=== PATIENT | male | born 1950 | race Caucasian/White ===

== ENCOUNTER 2017-10-28 14:46 | Emergency (ER) | payer OTHER, SELFPAY ==
[2017-10-28 14:47] VITALS: BP 131/108; PULSE 170; RESP 18; TEMP 36.6; O2SAT 99; BMI 30.2
[2017-10-28] MEDS: Adenosine 6 MG/2 ML Syringe IV (15:05)
--- NOTE | 2017-10-28 15:11 | EKG12_ITS ---
Test Reason : PALP Blood Pressure : / mmHG Vent. Rate : 161 BPM Atrial Rate : 163 BPM P-R Int : 000 ms QRS Dur : 106 ms QT Int : 296 ms P-R-T Axes : 000 -49 054 degrees QTc Int : 484 ms Supraventricular tachycardia Left axis deviation Abnormal ECG Confirmed by TAHIRA LOVETT, NONA ([id number]), state editor JOSHUA MARRUFO ([id number]) on 11/01/2017 8:28:24 AM Referred By: Damaso Carl Confirmed By:NONA HOFFMANN MD
--- NOTE | 2017-10-28 15:11 | RAD_ITS ---
STUDY: X-RAY CHEST REASON FOR EXAM: Male, 67 years old. Chest pain. TECHNIQUE: Single AP portable view of the chest. COMPARISON: None. FINDINGS: EKG left ribs are seen. The lungs are clear and expanded. There is no demonstrated pleural abnormality. Normal size heart. Normal mediastinum and caitlin. Normal visualized pulmonary arteries. There is atherosclerotic tortuosity of the aortic arch and descending thoracic aorta. There are diffuse degenerative changes of the visualized thoracic spine. Normal visualized ribs, clavicles, and shoulders. There is no demonstrated abnormality of the visualized soft tissue structures of the upper abdomen. RAD/Chest 1 View (Portable) IMPRESSION: No acute abnormality is seen. Electronically Signed: Irvin Solis MD at 15:39 EDT Tel [phone], Service support ,
[2017-10-28] MEDS: Metoprolol Tartrate 5 MG/5 ML Vial IV (15:17)
[2017-10-28] MEDS: 0.9% Normal Saline 1,000 ML 150 ML IV (15:17)
[2017-10-28 15:18] VITALS: BP 166/124; PULSE 103; RESP 19; O2SAT 97
--- NOTE | 2017-10-28 15:19 | EKG12_ITS ---
Test Reason : PALP Blood Pressure : / mmHG Vent. Rate : 109 BPM Atrial Rate : 326 BPM P-R Int : 000 ms QRS Dur : 092 ms QT Int : 296 ms P-R-T Axes : -61 003 079 degrees QTc Int : 398 ms Atrial flutter with variable A-V block with premature ventricular or aberrantly conducted complexes Abnormal ECG Confirmed by TAHIRA LOVETT, NONA ([id number]), staff editor JOSHUA MARRUFO ([id number]) on 11/01/2017 8:29:09 AM Referred By: Damaso Carl Confirmed By:NONA HOFFMANN MD
--- NOTE | 2017-10-28 15:27 | ED.DCSUM_ITS ---
- ER Visit Summary Date of Service: 10/28/17 Chief Complaint: Heart racing History of Present Illness: The patient is a 67 M who is scheduled for prostate surgery on November 04. Patient came in today for preadmission testing and EKG noted the patient to be in SVT. Patient states that now that someone is pointed out his fast heart rate, he does have the sensation that his heart is racing. He states this occurs periodically. He does not know how long this episode may have lasted. Patient does not have chest pain, shortness of breath , lightheadedness, or near syncope. Patient previously been on aspirin and multivitamins that he stopped on October 13 due to his upcoming surgery. Physical Examination: Vital signs include a blood pressure 131/108, temperature 97.8, heart rate 170, respiratory rate 18, pulse ox 99% on room air. Patient sitting upright in bed no acute distress. He is alert and conversant. Head neck examination is unremarkable. Heart is tachycardic. Lung sounds are clear. Abdomen is soft nontender. Test Results: Portable chest x-ray reveals no acute abnormality. EKG appeared to show SVT with a rate of 171. No acute ischemia. CBC was a white count of 14.3. Chemistry studies reveal BUN 23 and creatinine 1.82. Coags are normal. Troponin is less than 0.02. TSH is unremarkable. Emergency Department Course and Treatment: IV line was established. Patient was given 6 mg of IV adenosine. Patient's heart rate waxed and waned between atrial fibrillation and SVT. 5 mg of IV metoprolol were given and patient converted to an atrial flutter rhythm at approximately 110. Patient maintained in this rhythm for approximately 45 minutes and then kicked back into what appeared to be SVT versus a flutter with a 2-1 block at 161. Before he was given any medications he spontaneously converted to normal sinus rhythm. Patient has maintained in sinus rhythm for over an hour. I spoke with Dr. Hernandez. Patient be started on metoprolol 50 mg twice daily. His creatinine clearance is 41 and he will be started on Xarelto at 15 mg a day. Prescriptions for the patient will be given and he will follow-up with Dr. Hernandez. Treatment Plan: [] Disposition: Discharge Impression: 1. SVT, chemical cardioversion 2. New onset atrial flutter with spontaneous conversion to sinus rhythm. This note was generated with Dragon dictation software. It may contain incorrect words, spelling, and punctuation that were not noted in review of the chart prior to signing ED Disposition - Plan for ED Patient: Chief Complaint: Palpitations Referrals: Jey Adams [Primary Care Provider] -
[2017-10-28 15:28] LABS: Absolute Neutrophil Count 10.2 X10^3/uL (2.0-7.7); Basophil# 0.03 X10^3/uL; Basophil% 0.2 % (0-1); Eosinophil# 0.22 X10^3/uL; Eosinophils% 1.5 % (0-5); Hemoglobin 16.2 g/dl (13.0-16.5); Lymphocyte % 17.5 % (19-41); Mean Corp Hgb Conc 34.5 g/gl (32-36); Mean Corpuscular Hgb 30.1 pg (27.0-32.0); Mean Corpuscular Volume 87.4 fL (80-94); Mean Platelet Vol. 11.2 fl (6.2-12.0); Monocyte# 1.35 X10^3/uL; Monocyte% 9.4 % (0-10); Neutrophil # 10.18 X10^3/uL (2.7-7.7); Neutrophil % 71.2 % (47-70); Platelet Count 319 K/mm3 (150-450); RBC Distribution Width CV 13.6 % (11.6-14.6); RBC Distribution Width SD 43.5 fl (35.1-43.9); Red Blood Count 5.38 M/mm3 (4.6-6.2); White Blood Count 14.3 K/mm3 (4.4-11.0)
[2017-10-28 15:39] LABS: International Normalized Ratio 1.1; Partial Thromboplast Time 27.4 Seconds (24.1-36.2); Prothrombin Time (Protime)PT. 13.8 SECONDS (11.7-14.9)
[2017-10-28 15:50] LABS: POSITIVE COUNT NO; POSITIVE DIFFERENTIAL NO; POSITIVE MORPHOLOGY NO
--- NOTE | 2017-10-28 15:59 | EKG12_ITS ---
Test Reason : TACHY Blood Pressure : / mmHG Vent. Rate : 171 BPM Atrial Rate : 170 BPM P-R Int : 000 ms QRS Dur : 104 ms QT Int : 284 ms P-R-T Axes : 000 -67 080 degrees QTc Int : 479 ms Supraventricular tachycardia Left anterior fascicular block ST & T wave abnormality, consider inferior ischemia Abnormal ECG Confirmed by TAHIRA LOVETT, NONA ([id number]), supervising editor news reel JOSHUA MARRUFO ([id number]) on 11/01/2017 8:29:39 AM Referred By: Damaso Carl Confirmed By:NONA HOFFMANN MD
[2017-10-28 16:06] VITALS: BP 118/93; PULSE 162; RESP 16; O2SAT 97
[2017-10-28] MEDS: Enoxaparin 100 MG/ML Syringe SC (16:10)
--- NOTE | 2017-10-28 16:14 | HP.PCM_ITS ---
Addendum entered and electronically signed by Joyce Ross MD 10/28/17 19:38 : Code Visit Office Visits / Consults: [id number] OP Consult L1 Original Note: Problem List (1) Atrial flutter Status: Acute (2) Paroxysmal atrial flutter Status: Acute History of Present Illness Date of Admission: 10/28/17 Chief Complaint: cleared for discharge from ED The patient is a 67 year old M seen and examined in ED for atrial flutter [] Past Medical History Allergies No Known Allergies Allergy (Verified 10/28/17 14:47) Home Medications: Ambulatory Orders Medication Instructions Recorded Aspirin E.C. [Ecotrin] 81 mg PO DAILY@0800 10/28/17 Metoprolol Tartrate [Lopressor 50 mg PO BID #60 tablet 10/28/17 (Beta Codey)] Rivaroxaban [Xarelto] 15 mg PO DAILY #30 tablet 10/28/17 Tamsulosin HCl [Flomax] 0.4 mg PO DAILY 10/28/17 Smoking Status: Never smoker VTE Information - Inpt Only VTE Present on Admission: No VTE Mechan Device Prophylaxis: None VTE Pharm Prophylaxis ordered?: No Reason prophylaxis not ordered:: Treatment Not Indicated - Xarelto at discharge - Physical Exam General: Alert, Oriented x3, Cooperative Neck: No JVD, Negative Carotid Bruits, Thyroid Normal Size and Texture Lungs: Clear to auscultation Cardiovascular: Regular rate, Regular Rhythm - sinus predominant with PACs Abdomen: - - Pierre leg bag Vital Signs Temp Pulse Resp BP Pulse Ox 97.8 F 162 H 16 118/93 H 97 10/28/17 14:47 10/28/17 16:06 10/28/17 16:06 10/28/17 16:06 10/28/17 16:06 Oxygen Flow Rate (L/min) 2 Oxygen Delivery Method Room Air Weight: 210 lb 15.718 oz Body Mass Index (BMI) 30.2 Laboratory Tests Past 24 Hrs 10/28/17 10/28/17 10/28/17 14:55 14:55 14:55 WBC 14.3 H RBC 5.38 Hgb 16.2 Hct 47.0 MCV 87.4 MCH 30.1 MCHC 34.5 RDW 13.6 RDW Differential 43.5 Plt Count 319 MPV 11.2 Immature Gran % (Auto) 0.200 Neut % (Auto) 71.2 H Lymph % (Auto) 17.5 L Moffat % (Auto) 9.4 Eos % (Auto) 1.5 Baso % (Auto) 0.2 Absolute Neuts (auto) 10.2 H Absolute Lymphs (auto) 2.50 Total Counted Not Reportable PT 13.8 INR 1.1 APTT 27.4 Sodium Pending Potassium Pending Chloride Pending Carbon Dioxide Pending Anion Gap Pending BUN Pending Creatinine Pending Est GFR (MDRD) Af Amer Pending Est GFR (MDRD) Non-Af Pending BUN/Creatinine Ratio Pending Glucose Pending Calcium Pending Troponin I Pending TSH Pending Assessment/Plan Patient was seen and examined in the emergency department. 67-year-old gentleman who was referred from the urology office/PAT for SVT. The patient was asymptomatic. He reported occasionally feeling fluttering in his chest over the past few years, asymptomatic. Usually occurred after eating large meals. He denied any anginal symptoms. EKGs were reviewed. Initial EKG SVT at 170. He received adenosine 6 mg, and reverted to an atrial flutter, 2-1 at approximately 150s. He then received 5 mg Lopressor IV, and eventually settled into a sinus rhythm. Upon seeing the patient, he remains in sinus rhythm with occasional PACs. Physical exam was unrevealing, volume status euvolemic. He has Pierre with leg bag for urinary retention. He remained in sinus rhythm whilst observed in ED for over an hour, and was cleared for discharge by cardiology, Dr. Hernandez. Prescriptions for NOAC and betablocker were provided by ED in consultation with Dr. Hernandez. Follow up was arranged.
--- NOTE | 2017-10-28 16:19 | EKG12_ITS ---
Test Reason : PALP Blood Pressure : / mmHG Vent. Rate : 071 BPM Atrial Rate : 071 BPM P-R Int : 146 ms QRS Dur : 100 ms QT Int : 366 ms P-R-T Axes : 027 -29 039 degrees QTc Int : 397 ms Sinus rhythm with marked sinus arrhythmia Otherwise normal ECG Confirmed by TAHIRA LOVETT, NONA ([id number]), makeup editor JOSHUA MARRUFO ([id number]) on 11/01/2017 8:51:25 AM Referred By: Damaso Carl Confirmed By:NONA HOFFMANN MD
[2017-10-28 16:32] VITALS: BMI 30.3
[2017-10-28 17:17] LABS: Anion Gap 10 (5-15); BUN 23 mg/dL (7-18); BUN/Creat Ratio 12.6 RATIO (10-20); Chloride 108 mmol/L (98-107); Creatinine, Serum 1.82 mg/dL (0.70-1.30); EST Glomerular Filtration Rate 40 mL/min (>60); Est Glom Filt Rate - Afr Amer 48 mL/min (>60); Estimated Creatinine Clearance 41.22 ml/min; Glucose 101 mg/dL (74-106); Potassium 4.2 mmol/L (3.5-5.1); Sodium Level 142 mmol/L (136-145); Thyroid Stim Hormone (TSH) 2.18 uIU/mL (0.358-3.74)
[2017-10-28] MEDS: Metoprolol Tartrate 25 MG Tablet 50 MG PO (17:22)
[2017-10-28 17:23] VITALS: BP 110/67; PULSE 67; RESP 16; O2SAT 94
--- NOTE | 2017-10-28 17:31 | ED.DEP ---
ED Disposition - Plan for ED Patient: Disposition: Home or Assisted Living Chief Complaint: Palpitations Instructions: ED Paroxysmal Atrial Flutter Prescriptions: Rivaroxaban [Xarelto] 15 mg PO DAILY #30 tablet Metoprolol Tartrate [Lopressor (Beta Codey)] 50 mg PO BID #60 tablet Referrals: Jey Adams [Primary Care Provider] - Ez Hernandez MD [STAFF PHYSICIAN] - Additional Instructions: Follow-up with Dr Hernandez as discussed.
[2017-10-28 17:45] VITALS: BP 121/74; PULSE 64; RESP 16; O2SAT 95
[2017-10-28] MEDS: Rivaroxaban 15 MG Tablet PO (17:55)
== END 2017-10-28 17:55 | disposition home or self-care (01) ==
PROVIDERS: Emergency Provider Emergency Medicine; Family Provider Family Medicine; PCP Family Medicine
DX: I47.1 Supraventricular tachycardia (principal); I48.92 Unspecified atrial flutter; N40.0 Benign prostatic hyperplasia without lower urinary tract symptoms; Z79.82 Long term (current) use of aspirin; Z79.899 Other long term (current) drug therapy
CPT/HCPCS: 71045; 80048; 84443; 84484; 85025; 85610; 85730; 93005; 96360; 96361; 96372; 96374; 96375; 99285; J7030; A4216; J0153

== ENCOUNTER → 2017-11-14 12:34 | Outpatient (CLI) | payer OTHER, SELFPAY ==
--- NOTE | 2017-11-14 12:34 | ECHOD_ITS ---
Reason For Study: afib Procedure This was a 2D Doppler, Color Flow transthoracic echocardiogram. Exam performed in department. Left Ventricle Normal LV size. Left ventricular systolic function is normal. The estimated ejection fraction is 60 %. No evidence for diastolic dysfunction. No regional wall motion abnormalities noted. Right Ventricle Normal RV size. Normal systolic function. Atria The left atrium is mildly enlarged. Normal right atrium. Mitral Valve Normal mitral valve. Tricuspid Valve Normal tricuspid valve. Aortic Valve Trisinus/trileaflet aortic valve. Pulmonic Valve Normal pulmonic valve. Great Vessels Normal aortic root. The pulmonary artery is normal size. Normal inferior vena cava. Pericardium/Pleural No pericardial effusion. MMode/2D Measurements & Calculations LVIDd: 4.6 cm IVSd: 1.1 cm Ao root diam: 4.6 cm LVIDs: 3.1 cm LVPWd: 1.2 cm RVDd: 4.4 cm FS: 32.4 % LAV(MOD-bp): 76.0 ml EDV(MOD-sp4): 149.8 ml EDV(MOD-sp2): 113.0 ml LAV(MOD-bp) Indexed: 35.6 ml/m2 ESV(MOD-sp4): 52.6 ml EF(MOD-sp2): 74.4 % LAV(MOD-sp2): 70.4 ml EF(MOD-sp4): 64.9 % LAV(MOD-sp4): 74.1 ml SV(MOD-sp4): 97.2 ml SV(MOD-sp2): 84.1 ml LA A4 area: 23.0 cm2 RA A4 area: 13.2 cm2 Doppler Measurements & Calculations MV E max aaron: 92.9 cm/sec Lat Peak E' Aaron: 11.7 cm/sec Med Peak E' Aaron: 8.8 cm/sec MV A max aaron: 50.7 cm/sec E/E' lat: 7.9 E/E' med: 10.5 MV E/A: 1.8 Ao V2 max: 122.4 cm/sec LV V1 max: 101.0 cm/sec Ao max P.0 mmHg LV V1 max P.1 mmHg Interpretation Summary Normal LV size. Left ventricular systolic function is normal. The estimated ejection fraction is 60 %. No evidence for diastolic dysfunction. Structurally normal valves. Ordering Physician: Ez Hernandez Referring Physician: Damaso Carl Performed By: Tianna Benson, MARION, RVT
== END ==
PROVIDERS: Family Provider Family Medicine; PCP Family Medicine; Visit Provider Internal Medicine Cardiovascular Disease
DX: Z01.810 Encounter for preprocedural cardiovascular examination (principal)
CPT/HCPCS: 93306

== ENCOUNTER 2017-11-16 12:19 | Day surgery (SDC) | payer OTHER, SELFPAY ==
[2017-10-28 13:54] VITALS: BP 136/88; PULSE 86; RESP 16; TEMP 37.1; O2SAT 96; BMI 30.2
--- NOTE | 2017-10-28 14:18 | SDCEKG_ITS ---
Test Reason : Blood Pressure : / mmHG Vent. Rate : 092 BPM Atrial Rate : 330 BPM P-R Int : 000 ms QRS Dur : 090 ms QT Int : 312 ms P-R-T Axes : 000 -17 058 degrees QTc Int : 385 ms Atrial flutter with variable A-V block Abnormal ECG Confirmed by TAHIRA LOVETT, NONA ([id number]), production editor JOSHUA MARRUFO ([id number]) on 10/31/2017 2:26:18 PM Referred By: Damaso Carl Confirmed By:NONA HOFFMANN MD
[2017-11-16] VITALS (16 sets, daily range): BP systolic 123–162; BP diastolic 60–85; PULSE 47–69; RESP 16–18; TEMP 36.2–36.7; O2SAT 98–100; BMI 30.2; BMI 30.3
--- NOTE | 2017-11-16 | IMM_PTH ---
PATIENT: GRISELDA HANSEN LOC: [facility] [place][id number] AGE/SX: 67/M ROOM: RE11/16/[address]: Dr. Damaso Carl MD : 1950 BED: DIS: 11/17/2017 SPEC #: [id number] RECD: 11/18/17 12:38 STATUS: CARLIE RETana #: [id number] YARITZA: 11/16/17 00:[address]: Damaso Carl DEPT: IMMUNOHISTOCHEMISTRY RECD BY: Cheryle Jaramillo ENTERED: 11/18/17 12:39 SP TYPE: IMMUNO OTHR DR: Dr. Jey Adams MD Tissues: Prostate, NOS Procedures: PSA (add) 34BE12 (add) P40 (add) PSA (initial) PHYSICIAN & INSTITUTION [place] [id number] SPECIMEN INFORMATION: Tissue Source: Prostate tissue Clinical Info: BPH with lower urinary tract symptoms, retention of urine Specimen Number: [id number] #2 CPT code: 66009, 00872 x3 METHODOLOGY: Deparaffinized sections of prefer/formalin-fixed tissue or PAP/DQ stained slides are incubated with monoclonal/polyclonal antibodies/oligonucleotide probes. Localization is made via biotin free immunoperoxidase method. Appropriate controls are performed and reacted as expected. Results on target cell population are indicated in the following table: RESULTS: ANTIBODY / CLONE RESULT PSA (ER-PR8) positive PSAP (PASE/4LJ) positive 34BE12 (34BE12) negative P40 (BC28) negative These tests were developed and their performance characteristics determined by [facility]. They may not have been cleared or approved by the U.S. Food and Drug Administration. The FDA has determined that such clearance or approval is not necessary. INTERPRETATION: Prostate tissue, transurethral resection: Focus of prostatic adenocarcinoma, Valatie 6 (3+3). AM:celia 11/22/17
[2017-11-16] MEDS: Cefazolin 2 GM in 0.9% Normal Saline 100 ML IV (13:09)
--- NOTE | 2017-11-16 14:15 | PROS_PTH ---
PATIENT: GRISELDA HANSEN LOC: [facility] – [place] U#:[id number] AGE/SX: 67/M ROOM: RE11/16/[address]: Dr. Damaso Carl MD : 1950 BED: DIS: 11/17/2017 SPEC #: [id number] RECD: 11/16/17 16:17 STATUS: CARLIE EILEEN #: [id number] YARITZA: 11/16/17 14:[address]: Damaso Carl DEPT: SURGICAL PATHOLOGY RECD BY: Jayjay Adams ENTERED: 11/17/17 08:56 SP TYPE: TURP OTHR DR: Dr. Jey Adams MD Tissues: Prostate, NOS Procedures: Surgery Specimen Level IV HEADER OPERATION: Cysto, TUR, prostate, Olympus PRE-OP DIAGNOSIS: Benign prostatic hyperplasia with lower urinary tract symptoms, retention of urine TISSUE SUBMITTED: Prostate tissue MICROSCOPIC DIAGNOSIS Prostate, transurethral resection: Adenocarcinoma: Vilonia grade: 6 (3+3) Less than 1% of tissue submitted. Involves focal area in one fragment. AM:celia 11/22/17 COMMENT Case has been reviewed in consultation with Dr. Rangel who concurs with the above diagnosis. IDC:SJ MICROSCOPIC DESCRIPTION Slides are reviewed. GROSS DESCRIPTION Received is one container labeled with the patient's name and designated prostate tissue. The specimen consists of multiple irregular fragments of pink-goodson, rubbery, soft tissue that in aggregate weigh 15.5 gm and measure in aggregate 5 x 5 x 1.3 cm. The specimen is totally submitted in 16 cassettes. / AM:celia 11/17/17 TC:0 CPT: 53090
--- NOTE | 2017-11-16 14:16 | OP.PCM_ITS ---
Report of Operation Date of Procedure: 11/16/17 Pre-Operative Diagnosis: BPH with obstruction and urinary retention Post-Operative Diagnosis: Same Surgery/Procedure Performed:: Transurethral resection of the prostate Description of Surgical Findings:: 67-year-old male who developed urinary retention is failed voiding trials he has a catheter in place at this point presents to the hospital for TURP to hopefully restore normal voiding. 67-year-old male taken back to the operating room after smooth induction of general anesthesia he was placed supine on the table and then in dorsal lithotomy position penis and testicles were prepped and draped in usual sterile fashion went into the bladder through the urethra with a 26 Icelandic continuous flow resectoscope the entire length of the urethra is normal the pendulous urethra is normal the bulbar urethra normal the sphincter was intact the prostate was normal he did have obstructive prostate very large lateral lobes no median lobe I first resected the right lobe of the prostate I then resected the left lobe the prostate and then resected the apical tissue the prostate on both the right side and the left side and Ellik out all the chips and then cauterized throughout the prostate got a good hemostasis resection took about 45 minutes to resect the entire prostate had a nice wide open channel at the end from the verumontanum to the bladder neck obtained good hemostasis all the chips were removed three-way catheter was put into the bladder continues bladder irrigation which is nice and clear the patient anesthetic is being reversed. Type of Anesthesia:: General Drains: 3 way fernando - Admit VTE Documentation VTE Present on Admission: No VTE Mechan Device Prophylaxis: SCD's VTE Pharm Prophylaxis ordered?: No Reason prophylaxis not ordered:: Treatment Not Indicated
[2017-11-16] MEDS: 0.9% Normal Saline 1,000 ML 75 ML IV (18:37)
[2017-11-16] MEDS: Ciprofloxacin 500 MG Tablet PO (21:23)
[2017-11-16] MEDS: Docusate Sodium 100 MG Capsule PO (21:23)
--- NOTE | 2017-11-16 23:01 | NURSING ---
pt ambulated to door and back to bed without any dizziness. tolerated well.
[2017-11-17 02:50] VITALS: BP 130/57; PULSE 44; RESP 16; TEMP 36.6; O2SAT 98
[2017-11-17] MEDS: 0.9% Normal Saline 1,000 ML 75 ML IV (06:22)
--- NOTE | 2017-11-17 07:37 | PCM.DC.URO ---
Discharge Diet: Light diet - advance as tolerated Discharge Activity: Return to Normal Activity Call your doctor if your incision/area has: Sudden Increased Bleeding Suture Line Care: Avoid Pulling/Pushing, Avoid Pinching/Bending Instructions: Transurethral Resection of the Prostate (TURP): Home Recovery Allergies/Adverse Reactions: Allergies No Known Allergies Allergy (Verified 11/02/17 11:25) Medications to take at Discharge Metoprolol Tartrate [Lopressor (Beta Codey)] 50 mg PO BID #60 tablet 10/28/17 Rivaroxaban [Xarelto] 15 mg PO DAILY #30 tablet 10/28/17 Tamsulosin HCl [Flomax] 0.4 mg PO DAILY 10/28/17 Ciprofloxacin [Cipro] 500 mg PO BID #14 tab 11/17/17 The following prescriptions were given: Ciprofloxacin [Cipro] 500 mg PO BID #14 tab Primary Care Physician: Jey Adams MD [Primary Care Provider] - Please Follow Up With: Damaso Carl MD When: December 01 at 9:00 am
[2017-11-17 08:00] VITALS: BP 132/76; PULSE 62; RESP 16; TEMP 36.8; O2SAT 95
--- NOTE | 2017-11-17 12:50 | CHAPLAIN ---
patient was no longer in room; presumed pt has gone to surgery and will be out patient then
== END 2017-11-17 12:00 | disposition home or self-care (01) ==
LOC: SDC 12:22 → AC 12:22 → MS2 11-17 09:16
PROVIDERS: Family Provider Family Medicine; PCP Family Medicine; Visit Provider Urology
PROC: (CPT 52601; principal; 2017-11-16 14:05)
DX: N40.1 Benign prostatic hyperplasia with lower urinary tract symptoms (principal); N13.8 Other obstructive and reflux uropathy; R33.9 Retention of urine, unspecified; Z79.899 Other long term (current) drug therapy; Z79.82 Long term (current) use of aspirin
CPT/HCPCS: 00914; 52601; 88305; 88341; 88342; J7030; J7120

== ENCOUNTER → 2017-12-01 18:20 | Outpatient (CLI) | payer OTHER, SELFPAY | PROVIDERS: Visit Provider Nurse Practitioner Adult Health | DX: R31.9 Hematuria, unspecified (principal) | CPT/HCPCS: 87086 ==

== ENCOUNTER → 2018-01-06 15:31 | Outpatient (CLI) | payer OTHER, SELFPAY ==
[2018-01-06 16:50] LABS: PSA,Total- Diagnostic 2.07 ng/mL (0.0-4.0)
== END ==
PROVIDERS: Family Provider Family Medicine; PCP Family Medicine; Visit Provider Urology
DX: C61 Malignant neoplasm of prostate (principal)
CPT/HCPCS: 36415; 84153

== ENCOUNTER → 2018-01-16 13:56 | Outpatient (CLI) | payer OTHER, SELFPAY | PROVIDERS: Family Provider Family Medicine; PCP Family Medicine; Visit Provider Internal Medicine Cardiovascular Disease | DX: R55 Syncope and collapse (principal); I48.92 Unspecified atrial flutter; I10 Essential (primary) hypertension | CPT/HCPCS: 93225; 93226 ==

== ENCOUNTER → 2018-06-12 10:55 | Outpatient (CLI) | payer OTHER, SELFPAY | PROVIDERS: Family Provider Family Medicine; PCP Family Medicine; Referring Provider Internal Medicine Cardiovascular Disease; Visit Provider Internal Medicine Cardiovascular Disease | DX: I48.92 Unspecified atrial flutter (principal) | CPT/HCPCS: 93225; 93226 ==

== ENCOUNTER → 2018-06-23 11:17 | Outpatient (CLI) | payer OTHER, SELFPAY ==
[2018-06-23 10:41] VITALS: BMI 29.1
[2018-06-23 13:13] LABS: PSA,Total- Diagnostic 2.65 ng/mL (0.0-4.0)
--- OUTSIDE RECORDS SUMMARY | 2018-08-18 09:37 | XMS RPT_ITS ---
:1950 Author Organization OHIP Support Name Relationship Address Phone MENARDS Unavailable [address] + [place] [address] BREN HANSEN Unavailable [address] + [place] [address] JUNE LO Unavailable [address] + [place] [address] MENARDS Unavailable / + [place] [address] BREN HANSEN Unavailable [address] + [place] [address] JUNE LO Unavailable [address] + [place] [address] MENARDS Unavailable [address] + [place] [address] BREN HANSEN Unavailable [address] + [place] [address] JUNE LO Unavailable [address] + [place] [address] MENARDS Unavailable / + [place] [address] BREN HANSEN Unavailable [address] + [place] [address] JUNE LO Unavailable [address] + [place] [address] R Unavailable Unavailable Unavailable BREN HANSEN Unavailable [address] + [place] [address] JUNE LO Unavailable [address] + [place] [address] R Unavailable Unavailable Unavailable BREN HANSEN Unavailable [address] + [place] [address] ZABRINA LOELLE Unavailable [address] + [place] [address] R Unavailable Unavailable Unavailable BREN HANSEN Unavailable [address] + [place] [address] ZABRINA LOELLE Unavailable [address] + [place] [address] R Unavailable Unavailable Unavailable BREN HANSEN Unavailable [address] + [place] [address] ZABRINA LOELLE Unavailable [address] + [place] [address] R Unavailable Unavailable Unavailable BREN HANSEN Unavailable [address] + [place] [address] ZABRINA LOELLE Unavailable [address] + [place] [address] R Unavailable Unavailable Unavailable BREN HANSEN Unavailable [address] + [place] [address] LOZABRINAJUNE Unavailable [address] + [place] [address] R Unavailable Unavailable Unavailable BREN HANSEN Unavailable [address] + [place] [address] LO JUNE Unavailable [address] + [place] [address] R Unavailable Unavailable Unavailable BREN HANSEN Unavailable [address] + [place] [address] LOZABRINAJUNE Unavailable [address] + [place] [address] R Unavailable Unavailable Unavailable BREN HANSEN Unavailable [address] + [place] [address] TERESITA JUNE Unavailable [address] + [place] [address] R Unavailable Unavailable Unavailable TYRONE BREN Unavailable [address] + [place] [address] JUNE LO Unavailable [address] + [place] [address] R Unavailable Unavailable Unavailable TYRONE BREN Unavailable [address] + [place] [address] LOZABRINA ColeyJUNE Unavailable [address] + [place] [address] BREN MARRUFO Unavailable [address] + [place] [address] R Unavailable Unavailable Unavailable JUNE LO Unavailable [address] + [place] [address] R Unavailable Unavailable Unavailable BREN HANSEN Unavailable [address] + [place] [address] JUNE LO Unavailable [address] + [place] [address] R Unavailable Unavailable Unavailable BREN HANSEN Unavailable [address] + [place] [address] ZABRINA LOELLE Unavailable [address] + [place] [address] Care Team Providers Name Role Phone ARY CORTEZ DO Attending Unavailable JEY JEROME MD Primary Care Unavailable JEY JEROME MD Attending Unavailable JEY JEROME MD Primary Care Unavailable JEY JEROME MD Attending Unavailable JEY JEORME MD Primary Care Unavailable DR. JUAN MIGUEL MCKEON DO Attending Unavailable JEY JEROME MD Primary Care Unavailable Damaso Carl Attending Unavailable JEY JEROME Primary Care Unavailable Damaso Carl Referring Unavailable JEY JEROME Primary Care Unavailable Angie Rivera Attending Unavailable JEY JEROME Primary Care Unavailable Norm Thurman Attending Unavailable Arpita Carias Attending Unavailable Arpita Carias Referring Unavailable David, [place] Attending Unavailable Meseret Pieter Referring Unavailable David, [place] Attending Unavailable David, [place] Attending Unavailable Spencer Lam Attending Unavailable JEY JEROME Referring Unavailable MeseretDamaso vargas Attending Unavailable Meseret, Pieter Referring Unavailable JEY JEROME Primary Care Unavailable David, Ez Attending Unavailable David, [place] Referring Unavailable JEY JEROME Primary Care Unavailable David, [place] Attending Unavailable David, [place] Referring Unavailable Meseret Pieter Attending Unavailable Meseret, Pieter Referring Unavailable JEY JEROME Primary Care Unavailable David, Ez Attending Unavailable JEY JEROME Referring Unavailable JEY JEROME Primary Care Unavailable Mami Combs Attending Unavailable David, [place] Attending Unavailable JEY JEROME Referring Unavailable JEY JEROME Primary Care Unavailable David, [place] Attending Unavailable David, [place] Referring Unavailable JEY JEROME Primary Care Unavailable David, Ez Attending Unavailable JEY JEROME Referring Unavailable David, Ez Attending Unavailable David, Ez Referring Unavailable JEY JEROME Primary Care Unavailable PROBLEMS PROBLEMS DATE TYPE CONDITION / CODE ATTENDING STATUS SOURCE Unknown C61 - Malignant MeseretDamaso Active [place] 8 neoplasm of prostate / [facility] C61(ICD-10) Hospital Repository Admitting Hyperlipidemia, LINDA DO, Active [place] [address] Diagnosis unspecified / [facility] E78.5(ICD-10) Repository Admitting Other fatigue / LINDA DR. KAHLIL Active [facility] 8 Diagnosis R53.83(ICD-10) [facility] Repository Admitting Abnormal level of LINDA DO, Active [facility] 8 Diagnosis blood mineral / [facility] R79.0(ICD-10) Repository Unknown I48.92 - Unspecified David, [place] Active [place] 8 atrial flutter / [facility] I48.92(ICD-10) Hospital Repository Unknown R55 - Syncope and David, [place] Active [place] 8 collapse / R55(ICD-10) [facility] Hospital Repository Unknown N40.1 - Benign David, [place] Active [place] 8 prostatic hyperplasia [facility] with lower urinary Hospital tract symptoms / Repository N40.1(ICD-10) Unknown N13.8 - Other David, Ez Active [place] 8 obstructive and reflux Community uropathy / Hospital N13.8(ICD-10) Repository Unknown I10 - Essential David, Ez Active [place] 8 (primary) hypertension Community / I10(ICD-10) Hospital Repository Unknown Z01.810 - Encounter David, [place] Active [place] 8 for preprocedural Community cardiovascular Hospital examination / Repository Z01.810(ICD-10) Unknown R94.31 - Abnormal DavidEz nieves Active [place] 8 electrocardiogram Community [ECG] [EKG] / Hospital R94.31(ICD-10) Repository Admitting Hyperkalemia / QUEENIE LOVETT, Active [place] [address] Diagnosis E87.5(ICD-10) [facility] Admitting Hyperglycemia, QUEENIE LOVETT, Active [place] [address] Diagnosis unspecified / JEY D. [facility] R73.9(ICD-10) Repository Admitting Family history of QUEENIE LOVETT, Active [place] [address] Diagnosis other endocrine, [facility] nutritional and Repository metabolic diseases / Z83.49(ICD-10) PROCEDURES PROCEDURES No Procedure Records FoundRESULTS RESULTS PSA,TOTAL- DIAGNOSTIC Collected: 06/23/2018 Status: F Source: [place] 11:21 AM [facility] REPOSITORY TYPE CODE TESTS RESULT OUT OF RANGE REFERENCE UNITS LAB L501.9940 0.0-4.0 ng/mL PSA, Normal DIAGNOSTIC 2.65 Result Comment: This test was performed using the TPSA assay method for the [employer] chemistry system. Values obtained with different assay methods cannot be used interchangably. When changing PSA assays in the course of monitoring a patient, additional sequential testing should be carried out to confirm baseline values. Performed By: #### L501.9940 #### [facility] [place], [address] [facility] Collected: 05/10/2018 Status: F Source: [facility] 11:09 AM [facility] REPOSITORY TYPE CODE TESTS RESULT OUT OF REFERENCE UNITS RANGE LAB GLU(LOINC) 80-115 mg/dL Glucose Level 82 LAB NA(LOINC) 136-145 mmol/L Sodium Level 139 LAB K(LOINC) 3.5-5.1 mmol/L Potassium Level 4.9 LAB CL(LOINC) 98-107 mmol/L Chloride 103 LAB CO2(LOINC) 23-31 mmol/L CO2 28 LAB EBAL(LOINC mEq/L ) Electrolyte Balance 8.0 LAB BUN(LOINC) 7-18 mg/dL BUN 16 LAB CRE(LOINC) 0.70-1.30 mg/dL Creatinine Lvl (s) 1.03 LAB BC(LOINC) 7-27 ratio BUN/Creatinine 16 Ratio LAB CA(LOINC) 8.4-10.2 mg/dL Calcium Lvl 9.2 LAB PROT(LOINC 6.4-8.2 G/dL ) Total Protein 6.6 LAB ALB(LOINC) 3.4-4.8 G/dL Albumin Level 3.7 LAB GLB(LOINC) G/dL Globulin 2.9 LAB AG(LOINC) 1.1-2.5 ratio A/G Ratio 1.3 LAB BILT(LOINC 0.2-1.0 mg/dL ) Bili Total 1.0 LAB AP(LOINC) 40-135 U/L Alk Phos 71 LAB AST(LOINC) 10-40 U/L AST/SGOT 19 LAB ALT(LOINC) 10-35 U/L ALT/SGPT 32 Performed By: #### GFR, FERR, LIPID, CMP #### [place] [address] #### HGMP #### [address] [address] LIPID Collected: 05/10/2018 Status: F Source: [facility] 11:09 AM [facility] REPOSITORY TYPE CODE TESTS RESULT OUT OF REFERENCE UNITS RANGE LAB CHOL(LOINC 0-200 mg/dL ) Cholesterol 151 Result Comment: Cholesterol Reference Interval: Less than 200 Desirable 200-239 Borderline high risk 240 and above High risk LAB TRIG(LOINC) 0-150 mg/dL Triglycerides 76 Result Comment: Triglyceride Reference Interval: Less than 150 Normal 150-199 Borderline high risk 200-499 High risk 500 or higher Very high risk LAB HD(LOINC) 40-60 mg/dL HDL Cholesterol 50 LAB LDL(LOINC) 0-130 mg/dL LDL Cholesterol 86 Performed By: #### GFR, FERR, LIPID, CMP #### [place] [address] #### HGMP #### [address] [address] .GFR Collected: 05/10/2018 Status: F Source: [facility] 11:09 AM [facility] REPOSITORY TYPE CODE TESTS RESULT OUT OF REFERENCE UNITS RANGE LAB GFRAA(LOINC ml/min/1.73 ) sqm GFR 88 [place] Result Comment: GFR Population mean for , Non- Americans Ages 20-29 = 116 mL/min/1.73 sq.m. Ages 30-39 = 107 mL/min/1.73 sq.m. Ages 40-49 = 99 mL/min/1.73 sq.m. Ages 50-59 = 93 mL/min/1.73 sq.m. Ages 60-69 = 85 mL/min/1.73 sq.m. Ages 70+ = 75 mL/min/1.73 sq.m. Chronic Kidney Disease: Less than 60 mL/min/1.73 square meters End Stage Renal Disease: Less than 15 mL/min/1.73 square meters LAB GFRNO(LOINC) ml/min/1.73sqm GFR Non- 72 Result Comment: GFR Population mean for , Non- Americans Ages 20-29 = 116 mL/min/1.73 sq.m. Ages 30-39 = 107 mL/min/1.73 sq.m. Ages 40-49 = 99 mL/min/1.73 sq.m. Ages 50-59 = 93 mL/min/1.73 sq.m. Ages 60-69 = 85 mL/min/1.73 sq.m. Ages 70+ = 75 mL/min/1.73 sq.m. Chronic Kidney Disease: Less than 60 mL/min/1.73 square meters End Stage Renal Disease: Less than 15 mL/min/1.73 square meters Performed By: #### GFR, FERR, LIPID, CMP #### [address] [address] #### HGMP #### [address] [address] HGMP Collected: 05/10/2018 Status: F Source: [facility] 11:09 AM [facility] REPOS[facility] TYPE CODE TESTS RESULT OUT OF REFERENCE UNITS RANGE LAB WBC(LOINC) 4.60-10.80 10 3/mcL WBC 10.10 LAB RBCCT(LOINC 4.04-6.13 10 6/mcL ) RBC 5.00 LAB HGB(LOINC) 14.0-18.0 G/dL Hgb 15.7 LAB HCT(LOINC) 42.0-52.0 % Hct 46.0 LAB MCV(LOINC) 80.0-94.0 fL MCV 92.0 LAB MCH(LOINC) 27.0-31.2 pg High MCH 31.4 LAB MCHC(LOINC) 31.8-35.4 G/dL MCHC 34.1 LAB RDW(LOINC) 11.5-14.5 % RDW 14.5 LAB PLT(LOINC) 130-400 10 3/mcL Platelet 273 LAB MPV(LOINC) 7.4-10.4 fL MPV 9.5 Performed By: #### GFR, FERR, LIPID, CMP #### [place] [address] #### HGMP #### [place] [address] FERR Collected: 05/10/2018 Status: F Source: [facility] 11:09 AM [facility] REPOSIT[facility] TYPE CODE TESTS RESULT OUT OF REFERENCE UNITS RANGE LAB FERR(LOINC) 26-388 ng/mL Ferritin 32 Performed By: #### GFR, FERR, LIPID, CMP #### [place] [address] #### HGMP #### [address] [address] CARDIOLOGY VISIT Observed: 03/17/2018 Status: F Source: [place] REPORT 10:41 AM [facility] REPOSITORY [facility] [address] [place] [address]. [address] [place] [address] OFFICE VISIT Date of Service: 03/17/18 MR#: [id number] Acct: [id number] Name: GRISELDA HANSEN Rep #: [id number] : 1950 Provider: Ez Hernandez MD Age/Sex: 67/M Location: [facility] Status: Signed HPI [facility] Chief Complaint: Follow up Details: GRISELDA HANSEN is a 67 M who presents to the office today for follow-up visit. He is a gentleman who was noted to be in atrial flutter when he was having his urological procedure. He was seen by us he converted back to sinus rhythm he was placed on metoprolol as well as Xarelto and flecainide. He is done well since then though he had a syncopal episode in the shower in December. He had a 24-hour Holter monitor performed which demonstrated periods of atrial fibrillation flutter. He has also had some dizziness and does not think that he is reacting very well to the medications. He has not had any neck, jaw discomfort suggest angina. You do remember that he did have preserved left ventricular systolic function. It appears that he has been in sinus rhythm more than not. His physical exam today demonstrates clear lung reynoso regular rate and rhythm no pedal edema his electrocardiogram demonstrates evidence of sinus bradycardia with an incomplete right bundle branch block. Intake Vital Signs03/17/18 Height 5 ft 10 in 03/17/18 Weight: 209 lb 03/17/18 Body Mass Index (BMI) 29.9 03/17/18 Blood Pressure 128/78 03/17/18 Blood Pressure Location Lt brachial Intake Visit Reasons: 3 M FU Cigarette Carton Sealer Required: No Is patient in pain?: No Allergies No Known Allergies Allergy (Verified 03/17/18 10:17) Medications rivaroxaban 15 mg tablet 15 mg PO QPM #90 tab 12/14/17 [Rx Confirmed 03/17/18] flecainide 100 mg tablet 50 mg PO Q12H #180 tab 03/17/18 [Rx Confirmed 03/17/18] metoprolol tartrate 25 mg tablet 12.5 mg PO BID #180 tab 03/17/18 [Rx Confirmed 03/17/18] multivitamin tablet 1 tab PO DAILY 03/17/18 [History Confirmed 03/17/18] PFS Medical History Atrial flutter with controlled response (Chronic) 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 tract symptoms (Chronic) Hypertension (Chronic) Surgical History History of transurethral resection of prostate (Acute 11/16/17) H/O lateral meniscus repair of right knee (Chronic) History of microdiscectomy (Chronic) History of nasal surgery (Chronic) History of tonsillectomy (Chronic) History of vasectomy (Chronic) Family History Father , age 85 from Parkinson's CAD (coronary artery disease) Myocardial infarction Parkinsons Mother , liver failure d/t hemachromatosis Cirrhosis due to hemochromatosis Social History Smoking Status: Never smoker ROS Const Const: Positive for fatigue; negative for weakness, night sweats, excessive sweating, frequent falls, headache(s) or daytime sleepiness Eyes Eyes: Negative for loss of peripheral vision, transient loss of vision, blind spots, double vision or blurry vision ENT ENT: Positive for dizziness; negative for headache(s), balance problems, Nosebleed/epistaxis, tongue swelling or lip swelling Cardio Chest Pain: No Palpitations: No Edema: None Muscle aches with walking: None Resp Respiratory: Negative for SOB at rest, SOB orthopnea\SOB lying down, Cough, paroxysmal nocturnal dyspnea or SOB with activity GI GI: Negative nausea, vomiting, heartburn, black,tarry stools or bright, red blood in stools : Negative for hematuria Musc Musc: Negative for balance problems, muscle aches/ myalgia, muscle weakness or joint pain Skin Skin: Negative non-healing lesions, unusual bruising or rash Neuro Neuro: Positive for dizziness and lightheadedness; negative for weakness, frequent falls, headache(s), double vision, orthostatic symptoms, blurry vision or lack of coordination [place] Hematologic/Lymphatic: Negative for easy bruising or easy bleeding Endo Endo: Positive for fatigue; negative for excessive sweating, cold intolerance, heat intolerance, increased thirst/drinking or hair loss Psych Psych: Negative for anxiety or depression Allergy Allergy/Immunology: Negative for throat swelling, Negative for tongue swelling, Negative for hives, Negative for rash, Negative for lip swelling Cardiology Exam Const Appearance: cooperative, healthy appearing, well developed, well groomed and no acute distress Nutritional Appearance: well nourished and average body habitus Orientation: alert, awake and oriented x3 Head Head: normal to inspection, normocephalic and atraumatic Ears: hearing grossly normal bilaterally and external ears normal Nose: external nose normal, nasal mucous membranes and turbinates normal, nares normal, septum normal, no nasal discharge Face and Sinus: face symmetric Mouth: oral mucosae normal, tongue normal, oropharynx normal and moist mucous membranes Teeth and gingiva: dentition normal Throat: posterior oropharynx normal, tonsils normal and uvula midline Eyes General: appearance normal, both eyes and all related structures Eyelids: eyelids normal Conjunctivae: conjunctivae normal Pupils: PERRL, normal by confrontation and accommodation normal EOM: EOM intact bilaterally Neck Neck: normal visual inspection, trachea midline and no JVD JVD: +5 Carotids: normal carotid upstroke and bounding pulses Chest Chest inspection: normal inspection of the chest, symmetric chest movement and normal respiratory effort Auscultation: Bilateral: Clear to Auscultation Cardio Palpation: normal PMI Rate: regular rate Rhythm: regular rhythm Heart sounds: S1 normal, S2 normal and normal, physiologic split S2; negative rub, gallop or murmur GI GI: normal to inspection, soft, no hepatosplenomegaly and bowel sounds present Neuro General: alert, awake, oriented x3, no focal sensory deficit, gait normal and moves all extremities Skin Skin: no rashes or lesions noted Extremities Pulses: Normal: Right Femoral Pulse, Left Femoral Pulse, Right Dorsalis Pedis Pulse, Left Dorsalis Pedis Pulse, Right Posterior Tibial Pulse, Left Posterior Tibial Pulse, Right Radial Pulse, Left Radial Pulse Lower Extremity Edema: None: Bilateral Musculoskel Musculoskeletal: No joint tenderness Psych Psychological: normal affect Assessment AND Plan 1. Atrial flutter with controlled response I48.92 Plan He does have evidence of paroxysmal atrial fibrillation. He is maintaining sinus rhythm at this time due to his symptomatology my recommendation would be for him to reduce the dose of his flecainide to 50 mg twice a day as well as his metoprolol to 12.5 mg twice a day. I like to see him in approximately 3 months and to obtain a 24-hour Holter monitor just prior to the visit. Further recommendations will then be made. 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) Coding Level of Care Code Off vis,est,level 4 Diagnoses Atrial flutter with controlled response I48.92 Coding Level of Care Code Off vis,est,level 4 Diagnoses Atrial flutter with controlled response I48.92 03/17/18 1041 <Electronically signed by Ez Hernandez MD> Date Ez Hernandez MD Cosigner Signature: Date (if applicable) CC: Jey Jerome MD 12 LEAD EKG PERFORMED Observed: 03/17/2018 Status: F Source: [place] [facility] 10:20 AM [facility] REPOSITORY [facility] [address] [place] [address] 12 Lead EKG performed by [facility] 03/17/18 1019 MR#: [id number] Acct: [id number] Name: GRISELDA HANSEN Rep #: [id number] : 1950 67 From: Ez Hernandez MD Attending Dr: David LOVETT,Ez Status: DEP AMB Ordering Dr: Ez Hernandez MD Date: 03/17/18 Location: [facility] Sex: M C Admitted: [facility]/12 Lead EKG performed by [facility] Sinus Bradycardia -With rate variation cv = 12.-RSR(V1) -nondiagnostic. -Anterolateral ST-elevation -repolarization variant. PROBABLY NORMAL 03/20/18 0901 <Electronically signed by Ez Hernandez MD> Date Ez Hernandez MD CC: Jey Jerome MD Date Dictated: 03/17/18 1019 Date Transcribed: 03/17/18 101 Sourcing Engineer: CO Signed PSA,TOTAL- DIAGNOSTIC Collected: 01/06/2018 Status: F Source: [place] 3:34 PM [facility] REPOSITORY TYPE CODE TESTS RESULT OUT OF RANGE REFERENCE UNITS LAB L501.9940 0.0-4.0 ng/mL PSA, Normal DIAGNOSTIC 2.07 Result Comment: This test was performed using the TPSA assay method for the [employer] chemistry system. Values obtained with different assay methods cannot be used interchangably. When changing PSA assays in the course of monitoring a patient, additional sequential testing should be carried out to confirm baseline values. Performed By: #### L501.9940 #### [facility] [address] [place], [address] CARDIOLOGY VISIT Observed: 12/14/2017 Status: F Source: [place] REPORT 9:34 AM [facility] REPOSITORY [facility] [address] [place] [address] OFFICE VISIT Date of Service: 12/14/17 MR#: [id number] Acct: [id number] Name: GRISELDA HANSEN Rep #: [id number] : 1950 Provider: Ez Hernandez MD Age/Sex: 67/M Location: [facility] Status: Signed HPI HPI Details: GRISELDA HANSEN is a 67 M who presents to the office today for follow-up visit. He successfully underwent his TURP he still feels that his heart rate flutters at times and his daughter as well as himself has been keeping records of the above. He is concerned about the fatigue that he is having from the metoprolol. As you know his echocardiogram had demonstrated preserved ejection fraction. He is a gentleman with a history of benign prostatic hyperplasia with lower urinary tract symptoms who was found to be in atrial flutter on preadmission testing. This was completely unbeknownst to him. He denies any chest pain or shortness breath or paroxysmal nocturnal dyspnea pedal edema no neck arm or jaw discomfort suggest angina. He has had no dizziness or diaphoresis no near syncope or syncope. He has been on no medications until he was started on the Xarelto. He was also placed on metoprolol 50 mg twice a day. He has previously not been told that he has had any irregular heartbeat. His physical exam today demonstrates clear lung reynoso regular heart rate and no pedal edema. His electrocardiogram from his admission to the hospital a few days ago was reviewed and does confirm atrial flutter with a controlled ventricular response rate. His electrocardiogram this morning demonstrates sinus rhythm with a rate of 51 bpm with sinus arrhythmia. I did review his spreadsheet from his daughter. Intake Vital Signs12/14/17 Height 5 ft 10 in 12/14/17 Weight: 216 lb 12/14/17 Body Mass Index (BMI) 30.9 12/14/17 Blood Pressure 128/82 Intake Visit Reasons: 6 wk f/up Cigarette Carton Sealer Required: No Accompanied by: daughter Is patient in pain?: No Allergies No Known Allergies Allergy (Verified 12/14/17 09:06) Medications Tamsulosin HCl [Flomax] 0.4 mg PO DAILY 10/28/17 [History Confirmed 10/28/17] flecainide 100 mg tablet 100 mg PO Q12H #180 tab 12/14/17 [Rx Confirmed 12/14/17] metoprolol tartrate 25 mg tablet 25 mg PO BID #180 tab 12/14/17 [Rx Confirmed 12/14/17] rivaroxaban 15 mg tablet 15 mg PO QPM #90 tab 12/14/17 [Rx Confirmed 12/14/17] PFSH Medical History Atrial flutter with controlled response (Chronic) 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 tract symptoms (Chronic) Hypertension (Chronic) Surgical History History of transurethral resection of prostate (Acute 11/16/17) H/O lateral meniscus repair of right knee (Chronic) History of microdiscectomy (Chronic) History of nasal surgery (Chronic) History of tonsillectomy (Chronic) History of vasectomy (Chronic) Family History Father , age 85 from Parkinson's CAD (coronary artery disease) Myocardial infarction Parkinsons Mother , liver failure d/t hemachromatosis Cirrhosis due to hemochromatosis Social History Smoking Status: Never smoker ROS Const Const: Positive for weakness; negative for fatigue (tired all the time), night sweats, excessive sweating, frequent falls, headache(s) or daytime sleepiness Eyes Eyes: Negative for loss of peripheral vision, transient loss of vision, blind spots, double vision or blurry vision ENT ENT: Negative for headache(s), dizziness, balance problems, Nosebleed/epistaxis, tongue swelling or lip swelling Cardio Chest Pain: No Palpitations: No Edema: None Muscle aches with walking: None Additional Details: Patient s/p TURP, restarted Xarelto on 11/28/2017 Resp Respiratory: Negative for SOB at rest, SOB orthopnea\SOB lying down, Cough, paroxysmal nocturnal dyspnea or SOB with activity GI GI: Negative nausea, vomiting, heartburn, black,tarry stools or bright, red blood in stools : Negative for hematuria Musc Musc: Negative for balance problems, muscle aches/ myalgia, muscle weakness or joint pain Skin Skin: Negative non-healing lesions, unusual bruising or rash Neuro Neuro: Positive for weakness and lightheadedness (occasional); negative for frequent falls, headache(s), double vision, dizziness, orthostatic symptoms, blurry vision or lack of coordination Shahbaz Hematologic/Lymphatic: Negative for easy bruising or easy bleeding Endo Endo: Negative for fatigue (tired all the time), excessive sweating, cold intolerance, heat intolerance, increased thirst/drinking or hair loss Psych Psych: Negative for anxiety or depression Allergy Allergy/Immunology: Negative for throat swelling, Negative for tongue swelling, Negative for hives, Negative for rash, Negative for lip swelling Cardiology Exam Const Appearance: cooperative, healthy appearing, well developed, well groomed and no acute distress Nutritional Appearance: well nourished and average body habitus Orientation: alert, awake and oriented x3 Head Head: normal to inspection, normocephalic and atraumatic Ears: hearing grossly normal bilaterally and external ears normal Nose: external nose normal, nasal mucous membranes and turbinates normal, nares normal, septum normal, no nasal discharge Face and Sinus: face symmetric Mouth: oral mucosae normal, tongue normal, oropharynx normal and moist mucous membranes Teeth and gingiva: dentition normal Throat: posterior oropharynx normal, tonsils normal and uvula midline Eyes General: appearance normal, both eyes and all related structures Eyelids: eyelids normal Conjunctivae: conjunctivae normal Pupils: PERRL, normal by confrontation and accommodation normal EOM: EOM intact bilaterally Neck Neck: normal visual inspection, trachea midline and no JVD JVD: +5 Carotids: normal carotid upstroke and bounding pulses Chest Chest inspection: normal inspection of the chest, symmetric chest movement and normal respiratory effort Auscultation: Bilateral: Clear to Auscultation Cardio Palpation: normal PMI Rate: regular rate Rhythm: regular rhythm Heart sounds: S1 normal, S2 normal and normal, physiologic split S2; negative rub, gallop or murmur GI GI: normal to inspection, soft, no hepatosplenomegaly and bowel sounds present Neuro General: alert, awake, oriented x3, no focal sensory deficit, gait normal and moves all extremities Skin Skin: no rashes or lesions noted Extremities Pulses: Normal: Right Femoral Pulse, Left Femoral Pulse, Right Dorsalis Pedis Pulse, Left Dorsalis Pedis Pulse, Right Posterior Tibial Pulse, Left Posterior Tibial Pulse, Right Radial Pulse, Left Radial Pulse Lower Extremity Edema: None: Bilateral Musculoskel Musculoskeletal: No joint tenderness Psych Psychological: normal affect Assessment AND Plan 1. Atrial flutter with controlled response I48.92 Plan He does have evidence of paroxysmal atrial flutter. He appears to be maintaining sinus rhythm at this particular time he remains on anticoagulation and he does have preserved left ventricular systolic function. I recommend that we try him on flecainide 100 mg twice a day in addition to a reduced dose of the metoprolol to see whether he feels better. If after 3 months he still continues with the above I would recommend that we pursue ablation. Orders Orders: 2. Essential hypertension I10 Plan His blood pressure appears to be under fair control at this time he did not demonstrate any evidence of left ventricular hypertrophy on his echocardiogram. Thank you for allowing me to participate in the care of your patient. Please don't hesitate to call if any issues arise Orders Orders: Plan Detail Other Orders Orders: Other Medications New: Discontinued: Coding Level of Care Code Off vis,est,level 4 Diagnoses Atrial flutter with controlled response I48.92 Essential hypertension I10 Hypertension type: essential hypertension Coding Level of Care Code Off vis,est,level 4 Diagnoses Atrial flutter with controlled response I48.92 Essential hypertension I10 Hypertension type: essential hypertension 12/14/17 0934 <Electronically signed by Ez Hernandez MD> Date Ez Hernandez MD Cosigner Signature: Date (if applicable) CC: Jey Jerome MD 12 LEAD EKG PERFORMED Observed: 12/14/2017 Status: F Source: [place] BY KONSTANTIN 9:02 AM [facility] REPOSITORY [place] [address] [place] [address] 12 Lead EKG performed by KONSTANTIN 12/14/17900 MR#: [id number] Acct: [id number] Name: GRISELDA HANSEN Rep #: [id number] : 1950 67 From: Ez Hernandez MD Attending Dr: Ez Hernandez MD Status: DEP AMB Ordering Dr: Ez Hernandez MD Date: 12/14/17 Location: [facility] [place] Sex: M C Admitted: BMS/12 Lead EKG performed by [facility] ECG Report Interpretation Sinus Bradycardia -With rate variation cv = 18.WITHIN NORMAL LIMITSElectronically signed on 12/14/2017 at 13:21 by Ez Hernandez 12/14/17 1326 Date Ez Hernandez MD CC: Jey Jerome MD Date Dictated: 12/14/17900 Date Transcribed: 12/14/17900 Sourcing Engineer: CO Signed Observed: 12/01/2017 Status: F Source: [place] CULTURE, URINE 6:21 PM [facility] REPOSITORY Urine Culture Culture exhibits no growth. Performed By: #### [id number] #### [facility] [address] [place], [address] DISCHARGE INSTRUCTION Observed: 11/17/2017 Status: F Source: [place] 7:40 AM [facility] REPOSITORY [facility] Medical Records Department [facility] [place] [address] Instructions for Home/Discharge Instructions 11/17/17 0737 MR#: [id number] Acct: [id number] Name: GRISELDA HANSEN Rep #: [id number] : 1950 67 From: Damaso Carl MD PCP: Jey Jerome MD Status: REG [facility] Discharge Diet: Light diet - advance as tolerated Discharge Activity: Return to Normal Activity Call your doctor if your incision/area has: Sudden Increased Bleeding Suture Line Care: Avoid Pulling/Pushing, Avoid Pinching/Bending Instructions: Transurethral Resection of the Prostate (TURP): Home Recovery Allergies/Adverse Reactions: Allergies No Known Allergies Allergy (Verified 11/02/17 11:25) Medications to take at Discharge Metoprolol Tartrate [Lopressor (Beta Codey)] 50 mg PO BID #60 tablet 10/28/17 Rivaroxaban [Xarelto] 15 mg PO DAILY #30 tablet 10/28/17 Tamsulosin HCl [Flomax] 0.4 mg PO DAILY 10/28/17 Ciprofloxacin [Cipro] 500 mg PO BID #14 tab 11/17/17 The following prescriptions were given: Ciprofloxacin [Cipro] 500 mg PO BID #14 tab Primary Care Physician: Jey Jerome MD [Primary Care Provider] - Please Follow Up With: Damaso Carl MD When: December 01 at 9:00 am 11/17/17 0740 <Electronically signed by Damaso Carl MD> Date Damaso Carl MD CC: Jey Jerome MD OPERATIVE REPORT Observed: 11/16/2017 Status: F Source: [place] 2:16 PM [facility] REPOSITORY [facility] Medical Records Department [address] [place] [address] Operative Report 11/16/17 1414 MR#: [id number] Acct: [id number] Name: GRISELDA HANSEN Rep #: [id number] : 1950 67 From: Damaso Carl MD PCP: Jey Jerome MD Status: [facility] Location: [place] [address] Report of Operation Date of Procedure: 11/16/17 Pre-Operative Diagnosis: BPH with obstruction and urinary retention Post-Operative Diagnosis: Same Surgery/Procedure Performed:: Transurethral resection of the prostate Description of Surgical Findings:: 67-year-old male who developed urinary retention is failed voiding trials he has a catheter in place at this point presents to the hospital for TURP to hopefully restore normal voiding. 67-year-old male taken back to the operating room after smooth induction of general anesthesia he was placed supine on the table and then in dorsal lithotomy position penis and testicles were prepped and draped in usual sterile fashion went into the bladder through the urethra with a 26 Setswana continuous flow resectoscope the entire length of the urethra is normal the pendulous urethra is normal the bulbar urethra normal the sphincter was intact the prostate was normal he did have obstructive prostate very large lateral lobes no median lobe I first resected the right lobe of the prostate I then resected the left lobe the prostate and then resected the apical tissue the prostate on both the right side and the left side and Ellik out all the chips and then cauterized throughout the prostate got a good hemostasis resection took about 45 minutes to resect the entire prostate had a nice wide open channel at the end from the verumontanum to the bladder neck obtained good hemostasis all the chips were removed three-way catheter was put into the bladder continues bladder irrigation which is nice and clear the patient anesthetic is being reversed. Type of Anesthesia:: General Drains: 3 way fernando - Admit VTE Documentation VTE Present on Admission: No VTE Mechan Device Prophylaxis: SCD's VTE Pharm Prophylaxis ordered?: No Reason prophylaxis not ordered:: Treatment Not Indicated 11/16/17 1416 <Electronically signed by Damaso Carl MD> Date Damaso Carl MD CC: Jey Jerome MD; Damaso Carl MD Signed PROSTATE, TUR Observed: 11/16/2017 Status: F Source: [place] 2:15 PM [facility] REPOSITORY Patient: GRISELDA HANSEN : 1950 (67/M) Acct Num: [id number] Phys: Meseret LOVETT,Damaso Duncan Unit Num: [id number] Loc: [facility] Specimen: [id number] Received: 11/16/171616 Spec Type: TURP TISSUES TISSUES: Prostate, NOS COMMENT Case has been reviewed in consultation with Dr. Rangel who concurs with the above diagnosis. IDC:SJ GROSS DESCRIPTION Received is one container labeled with the patient's name and designated prostate tissue. The specimen consists of multiple irregular fragments of pink-goodson, rubbery, soft tissue that in aggregate weigh 15.5 gm and measure in aggregate 5 x 5 x 1.3 cm. The specimen is totally submitted in 16 cassettes. / AM:rg 11/17/17 TC:0 CPT: 45342 HEADER OPERATION: Cysto, TUR, prostate, Olympus PRE-OP DIAGNOSIS: Benign prostatic hyperplasia with lower urinary tract symptoms, retention of urine TISSUE SUBMITTED: Prostate tissue MICROSCOPIC DESCRIPTION Slides are reviewed. MICROSCOPIC DIAGNOSIS Prostate, transurethral resection: Adenocarcinoma: In[place] grade: 6 (3+3) Less than 1% of tissue submitted. Involves focal area in one fragment. AM:celia 11/22/17 Signed Bhaskar Maurizio 11/23/17 <signature on file> Performed By: #### PPROS #### [facility] [address] [place], [address] IMMUNOHISTOCHEMISTRY Observed: 11/16/2017 Status: F Source: [place] 12:00 AM [facility] REPOSITORY Patient: GRISELDA HANSEN : 1950 (67/M) Acct Num: [id number] Phys: Meseret LOVETT,Pieter Unit Num: [id number] Loc: [facility] Specimen: [id number] Received: 11/18/17 - 1238 Spec Type: IMMUNO TISSUES TISSUES: Prostate, NOS - #2 SPECIMEN INFORMATION: Tissue Source: Prostate tissue Clinical Info: BPH with lower urinary tract symptoms, retention of urine Specimen Number: [id number] #2 CPT code: 63445, 42824 x3 METHODOLOGY: Deparaffinized sections of prefer/formalin-fixed tissue or PAP/DQ stained slides are incubated with monoclonal/polyclonal antibodies/oligonucleotide probes. Localization is made via biotin free immunoperoxidase method. Appropriate controls are performed and reacted as expected. Results on target cell population are indicated in the following table: RESULTS: ANTIBODY / CLONE RESULT PSA (ER-PR8) positive PSAP (PASE/4LJ) positive 34BE12 (34BE12) negative P40 (BC28) negative These tests were developed and their performance characteristics determined by [facility]. They may not have been cleared or approved by the U.S. Food and Drug Administration. The FDA has determined that such clearance or approval is not necessary. INTERPRETATION: Prostate tissue, transurethral resection: Focus of prostatic adenocarcinoma, [place] 6 (3+3). AM:celia 11/22/17 PHYSICIAN AND INSTITUTION [facility] [address] [place], [place] [address] Signed Bhaskar Maurizio 11/23/17 <signature on file> Performed By: #### PIMM #### [facility] [address] [place], [address] ECHOCARDIOGRAM COMPLETE Observed: 11/14/2017 Status: F Source: [place] 3:14 PM [facility] REPOSITORY [facility] Cardiovascular Services [address] [place] [address] Echo Complete 11/14/17 1303 MR#: [id number] Acct: [id number] Name: GRISELDA HANSEN Rep #: [id number] : 1950 67 From: Ez Hernandez MD Attending Dr: Ez Hernandez MD Status: REG CLI Ordering Dr: Ez Hernandez MD Date: 11/14/17 Location: [facility] Sex: M C Admitted: Reason For Study: afib Procedure This was a 2D Doppler, Color Flow transthoracic echocardiogram. Exam performed in department. Left Ventricle Normal LV size. Left ventricular systolic function is normal. The estimated ejection fraction is 60 %. No evidence for diastolic dysfunction. No regional wall motion abnormalities noted. Right Ventricle Normal RV size. Normal systolic function. Atria The left atrium is mildly enlarged. Normal right atrium. Mitral Valve Normal mitral valve. Tricuspid Valve Normal tricuspid valve. Aortic Valve Trisinus/trileaflet aortic valve. Pulmonic Valve Normal pulmonic valve. Great Vessels Normal aortic root. The pulmonary artery is normal size. Normal inferior vena cava. Pericardium/Pleural No pericardial effusion. MMode/2D Measurements AND Calculations LVIDd: 4.6 cm IVSd: 1.1 cm Ao root diam: 4.6 cm LVIDs: 3.1 cm LVPWd: 1.2 cm RVDd: 4.4 cm FS: 32.4 % LAV(MOD-bp): 76.0 ml EDV(MOD-sp4): 149.8 ml EDV(MOD-sp2): 113.0 ml LAV(MOD-bp) Indexed: 35.6 ml/m2 ESV(MOD-sp4): 52.6 ml EF(MOD-sp2): 74.4 % LAV(MOD-sp2): 70.4 ml EF(MOD-sp4): 64.9 % LAV(MOD-sp4): 74.1 ml SV(MOD-sp4): 97.2 ml SV(MOD-sp2): 84.1 ml LA A4 area: 23.0 cm2 RA A4 area: 13.2 cm2 Doppler Measurements AND Calculations MV E max aaron: 92.9 cm/sec Lat Peak E' Aaron: 11.7 cm/sec Med Peak E' Aaron: 8.8 cm/sec MV A max aaron: 50.7 cm/sec E/E' lat: 7.9 E/E' med: 10.5 MV E/A: 1.8 Ao V2 max: 122.4 cm/sec LV V1 max: 101.0 cm/sec Ao max P.0 mmHg LV V1 max P.1 mmHg Interpretation Summary Normal LV size. Left ventricular systolic function is normal. The estimated ejection fraction is 60 %. No evidence for diastolic dysfunction. Structurally normal valves. Ordering Physician: Ez Hernandez Referring Physician: Damaso Carl Performed By: Tianna Benson, MARION, RVT 11/14/17 1514 Date Ez Hernandez MD CC: Ez Hernandez MD; JEY JEROME Date Dictated: 11/14/17 1303 Date Transcribed: 11/14/17 1514 Sourcing Engineer: Signed CARDIOLOGY VISIT Observed: 11/02/2017 Status: F Source: [place] REPORT 12:01 PM [facility] REPOSITORY [facility] [address] [place] [address] OFFICE VISIT Date of Service: 11/02/17 MR#: [id number] Acct: [id number] Name: GRISELDA HANSEN Rep #: [id number] : 1950 Provider: Ez Hernandez MD Age/Sex: 67/M Location: [facility] [place] Status: Signed HPI HPI Chief Complaint: Initial visit. Details: GRISELDA HANSEN, is a 67 M who presents to the office today for initial preop visit. He is a gentleman with a history of benign prostatic hyperplasia with lower urinary tract symptoms who was found to be in atrial flutter on preadmission testing. This was completely unbeknownst to him. He denies any chest pain or shortness breath or paroxysmal nocturnal dyspnea pedal edema no neck arm or jaw discomfort suggest angina. He has had no dizziness or diaphoresis no near syncope or syncope. He has been on no medications until he was started on the Xarelto. He was also placed on metoprolol 50 mg twice a day. He has previously not been told that he has had any irregular heartbeat. His physical exam today demonstrates clear lung reynoso irregular regular heart rate and no pedal edema. His electrocardiogram from his admission to the hospital a few days ago was reviewed and does confirm atrial flutter with a controlled ventricular response rate. Intake Vital Signs11/02/17 Height 5 ft 10 in 11/02/17 Weight: 211 lb 11/02/17 Body Mass Index (BMI) 30.2 11/02/17 Blood Pressure 140/60 Intake Visit Reasons: [facility] 4-6 for a-flutter, SVT Cigarette Carton Sealer Required: No Is patient in pain?: No Allergies No Known Allergies Allergy (Verified 11/02/17 11:25) Medications Metoprolol Tartrate [Lopressor (Beta Codey)] 50 mg PO BID #60 tab 10/28/17 [Rx] Rivaroxaban [Xarelto] 15 mg PO DAILY #30 tab 10/28/17 [Rx] Tamsulosin HCl [Flomax] 0.4 mg PO DAILY 10/28/17 [History Confirmed 10/28/17] [facility] Medical History 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 tract symptoms (Chronic) Hypertension (Chronic) Atrial flutter (Acute) Paroxysmal atrial flutter (Acute) Surgical History H/O lateral meniscus repair of right knee (Chronic) History of microdiscectomy (Chronic) History of nasal surgery (Chronic) History of tonsillectomy (Chronic) History of vasectomy (Chronic) Family History Father , age 85 from Parkinson's CAD (coronary artery disease) Myocardial infarction Parkinsons Mother , liver failure d/t hemachromatosis Cirrhosis due to hemochromatosis Social History Smoking Status: Never smoker ROS Const Const: Positive for other (Here for pre-op eval, had new onset a-flutter and TURP was cancelled); negative for fatigue, weakness, body ache, fever(s), headache(s), chills, frequent falls, night sweats, daytime sleepiness, difficulty sleeping, excessive sweating, weight gain, weight loss, increased appetite, poor appetite or anorexia Eyes Eyes: Negative for blind spots, loss of peripheral vision, transient loss of vision, blurry vision, change in vision, double vision, floaters, tunnel vision or other ENT ENT: Negative for headache(s), dizziness, hearing loss, tinnitus, Nosebleed/epistaxis, balance problems, post nasal drip, lip swelling, tongue swelling, bleeding gums, hoarseness, neck pain, dry mouth or other Cardio Chest Pain: No Palpitations: No (cannot really feel his atrial flutter unless it is very fast) Edema: None Muscle aches with walking: None Resp Respiratory: Negative for SOB with activity, SOB at rest, SOB orthopnea\SOB lying down, Coughing up blood/hemoptysis, chest congestion, pain on inspiration, snoring, stridor, wheezing, crackles, paroxysmal nocturnal dyspnea or other GI GI: Negative nausea, vomiting, heartburn, constipation, belching, bloating, cramping, vomiting blood/hematemesis, bright, red blood in stools, black,tarry stools, loose stools, Difficulty Swallowing or other : Negative for hematuria, frequent nighttime urination/ nocturia, erectile dysfunction or abnormal vaginal bleeding Musc Musc: Negative for balance problems, muscle aches/ myalgia, muscle weakness or joint pain Skin Skin: Negative redness, non-healing lesions, rash, unusual bruising, skin ulcer, wounds, jaundice or other Neuro Neuro: Negative for weakness, headache(s), frequent falls, blurry vision, double vision, dizziness, lightheadedness, near syncope, syncope, orthostatic symptoms, confusion, memory loss, restless legs, vertigo, seizures, lack of coordination or other Shahbaz Hematologic/Lymphatic: Negative for easy bleeding, easy bruising, enlarged lymph nodes or other Endo Endo: Negative for fatigue, excessive sweating, cold intolerance, heat intolerance, flushing, increased thirst/drinking, increased hunger, hair loss, hair growth or other Psych Psych: Negative for anxiety, depression, thoughts of harming anyone, thoughts of harming yourself, visual hallucinations, panic attacks or audible hallucinations Allergy Allergy/Immunology: Negative for lip swelling, Negative for tongue swelling, Negative for rash, Negative for throat swelling, Negative for hives Cardiology Exam Const Appearance: cooperative, healthy appearing, well developed, well groomed and no acute distress Nutritional Appearance: well nourished and average body habitus Orientation: alert, awake and oriented x3 Head Head: normal to inspection, normocephalic and atraumatic Ears: hearing grossly normal bilaterally and external ears normal Nose: external nose normal, nasal mucous membranes and turbinates normal, nares normal, septum normal, no nasal discharge Face and Sinus: face symmetric Mouth: oral mucosae normal, tongue normal, oropharynx normal and moist mucous membranes Teeth and gingiva: dentition normal Throat: posterior oropharynx normal, tonsils normal and uvula midline Eyes General: appearance normal, both eyes and all related structures Eyelids: eyelids normal Conjunctivae: conjunctivae normal Pupils: PERRL, normal by confrontation and accommodation normal EOM: EOM intact bilaterally Neck Neck: normal visual inspection, trachea midline and no JVD JVD: +5 Carotids: normal carotid upstroke and bounding pulses Chest Chest inspection: normal inspection of the chest, symmetric chest movement and normal respiratory effort Auscultation: Bilateral: Clear to Auscultation Cardio Palpation: normal PMI Rhythm: irregular rhythm Heart sounds: S1 normal and S2 normal GI GI: normal to inspection, soft, no hepatosplenomegaly and bowel sounds present Neuro General: alert, awake, oriented x3, no focal sensory deficit, gait normal and moves all extremities Skin Skin: no rashes or lesions noted Extremities Pulses: Normal: Right Femoral Pulse, Left Femoral Pulse, Right Dorsalis Pedis Pulse, Left Dorsalis Pedis Pulse, Right Posterior Tibial Pulse, Left Posterior Tibial Pulse, Right Radial Pulse, Left Radial Pulse Lower Extremity Edema: None: Bilateral Musculoskel Musculoskeletal: No joint tenderness Psych Psychological: normal affect Assessment AND Plan 1. Preop cardiovascular exam Z01.810 Plan He appears to be stable with respect to his preoperative cardiovascular exam. I would however recommend that in view of his atrial fibrillation we should obtain an echocardiogram to assess his left ventricular function as well as his atrial sizes. This may guide fluid administration. He however does not need any other testing. He should discontinue his rivaroxaban a minimum of 3 days before the intended surgery. Orders Orders: 2. Paroxysmal atrial flutter I48.92 Plan He appears to be in atrial flutter with a controlled ventricular response rate. He remains on anticoagulation which should be discontinued a few days prior to his surgery and also I would recommend that his metoprolol be continued on the same dose. After his surgery I would recommend that his rivaroxaban be started at the appropriate time as determined by the urologist and then we will see him here in the office at a later date to consider DC cardioversion. Thank you for allowing me to participate in the care of your patient. Please don't hesitate to call if any issues arise Orders Orders: Plan Detail Follow Up 6 Weeks (jhr) Coding Level of Care Code Off vis,new,level 4 Diagnoses Preop cardiovascular exam Z01.810 Paroxysmal atrial flutter I48.92 Coding Level of Care Code Off vis,new,level 4 Diagnoses Preop cardiovascular exam Z01.810 Paroxysmal atrial flutter I48.92 11/02/17 1201 <Electronically signed by Ez Hernandez MD> Date Ez Hernandez MD Cosigner Signature: Date (if applicable) CC: Damaso Carl MD; JEY JEROME 12 LEAD EKG PERFORMED Observed: 11/02/2017 Status: F Source: [facility] BY KONSTANTIN 11:27 AM [facility] REPOSITORY [facility] [address] [place] [address] 12 Lead EKG performed by KONSTANTIN 11/02/17 1127 MR#: [id number] Acct: [id number] Name: GRISELDA HANSEN Rep #: [id number] : 1950 67 From: Ez Hernandez MD Attending Dr: Ez Hernandez MD Status: DEP AMB Ordering Dr: Ez Hernandez MD Date: 11/02/17 Location: [facility] [place] Sex: M C Admitted: BMS/12 Lead EKG performed by [facility] ECG Report Interpretation Sinus Bradycardia -With rate variation cv = 12.-RSR(V1) -nondiagnostic. PROBABLY NORMALElectronically signed on 11/08/2017 at 08:52 by Ez Hernandez 11/08/17 0857 Date Ez Hernandez MD CC: JEY JEROME Date Dictated: 11/02/17 1127 Date Transcribed: 11/02/17 112 Sourcing Engineer: CO Signed 12 LEAD ELECTROCARDIOGRAM Observed: 11/01/2017 Status: F Source: [place] 8:51 AM [facility] REPOSITORY [facility] Cardiovascular Services [address] [place] [address] 12 Lead EKG 10/28/17 1619 MR#: [id number] Acct: [id number] Name: GRISELDA HANSEN Rep #: [id number] : 1950 67 From: Ez Hernandez MD Attending Dr: Status: DEP ER Ordering Dr: Angie Rivera MD Date: 10/28/17 Location: ED Sex: M C Admitted: Test Reason : PALP Blood Pressure : / mmHG Vent. Rate : 071 BPM Atrial Rate : 071 BPM P-R Int : 146 ms QRS Dur : 100 ms QT Int : 366 ms P-R-T Axes : 027 -29 039 degrees QTc Int : 397 ms Sinus rhythm with marked sinus arrhythmia Otherwise normal ECG Confirmed by EZ HERNANDEZ MD ([id number]), make up editor JOSHUA MARRUFO ([id number]) on 11/01/2017 8:51:25 AM Referred By: Damaso Carl Confirmed By:EZ HERNANDEZ MD 11/01/17 0851 Date Ez Hernandez MD CC: Angie Rivera MD; JEY JEROME Signed 12 LEAD ELECTROCARDIOGRAM Observed: 11/01/2017 Status: F Source: [place] 8:29 AM [facility] REPOSITORY [facility] Cardiovascular Services [address] [place] [address] 12 Lead EKG 10/28/17 1520 MR#: [id number] Acct: [id number] Name: GRISELDA HANSEN Rep #: [id number] : 1950 67 From: Ez Hernandez MD Attending Dr: Status: DEP ER Ordering Dr: Angie Rivera MD Date: 10/28/17 Location: ED Sex: M C Admitted: Test Reason : PALP Blood Pressure : / mmHG Vent. Rate : 109 BPM Atrial Rate : 326 BPM P-R Int : 000 ms QRS Dur : 092 ms QT Int : 296 ms P-R-T Axes : -61 003 079 degrees QTc Int : 398 ms Atrial flutter with variable A-V block with premature ventricular or aberrantly conducted complexes Abnormal ECG Confirmed by DAVID LOVETT, EZ ([id number]), make up editor JOSHUA MARRUFO ([id number]) on 11/01/2017 8:29:09 AM Referred By: Damaso Carl Confirmed By:EZ HERNANDEZ MD 11/01/17 0829 Date Ez Hernandez MD CC: Angie Rivera MD; JEY JEROME Signed 12 LEAD ELECTROCARDIOGRAM Observed: 11/01/2017 Status: F Source: [place] 8:29 AM [facility] REPOSITORY [facility] Cardiovascular Services [address] [place] [address] 12 Lead EKG 10/28/17 1451 MR#: [id number] Acct: [id number] Name: GRISELDA HANSEN Rep #: [id number] : 1950 67 From: Ez Hernandez MD Attending Dr: Status: DEP ER Ordering Dr: Angie Rivera MD Date: 10/28/17 Location: ED Sex: M C Admitted: Test Reason : TACHY Blood Pressure : / mmHG Vent. Rate : 171 BPM Atrial Rate : 170 BPM P-R Int : 000 ms QRS Dur : 104 ms QT Int : 284 ms P-R-T Axes : 000 -67 080 degrees QTc Int : 479 ms Supraventricular tachycardia Left anterior fascicular block ST AND T wave abnormality, consider inferior ischemia Abnormal ECG Confirmed by EZ HERNANDEZ MD ([id number]), make up editor JOSHUA MARRUFO ([id number]) on 11/01/2017 8:29:39 AM Referred By: Damaso Carl Confirmed By:EZ HERNANDEZ MD 11/01/17828 Date Ez Hernandez MD CC: Angie Rivera MD; JEY JEROME Signed 12 LEAD ELECTROCARDIOGRAM Observed: 11/01/2017 Status: F Source: [place] 8:28 AM [facility] REPOSITORY [facility] Cardiovascular Services [address] [place] [address] 12 Lead EKG 10/28/17 1602 MR#: [id number] Acct: [id number] Name: GRISELDA HANSEN Rep #: [id number] : 1950 67 From: Ez Hernandez MD Attending Dr: Status: DEP ER Ordering Dr: Angie Rivera MD Date: 10/28/17 Location: ED Sex: M C Admitted: Test Reason : PALP Blood Pressure : / mmHG Vent. Rate : 161 BPM Atrial Rate : 163 BPM P-R Int : 000 ms QRS Dur : 106 ms QT Int : 296 ms P-R-T Axes : 000 -49 054 degrees QTc Int : 484 ms Supraventricular tachycardia Left axis deviation Abnormal ECG Confirmed by EZ HERNANDEZ MD ([id number]), make up editor JOSHUA MARRUFO ([id number]) on 11/01/2017 8:28:24 AM Referred By: Damaso Carl Confirmed By:EZ HERNANDEZ MD 11/01/17827 Date Ez Hernandez MD CC: Angie Rivera MD; JEY JEROME Signed 12 LEAD ELECTROCARDIOGRAM Observed: 10/31/2017 Status: F Source: [place] 2:26 PM [facility] REPOSITORY [facility] Cardiovascular Services [address] [place] [address] EKG - SDC 10/28/17 1332 MR#: [id number] Acct: [id number] Name: GRISELDA HANSEN Rep #: [id number] : 1950 67 From: Ez Hernandez MD Attending Dr: Meseret LOVETT,Damaso Duncan Status: PRE SDC Ordering Dr: Chad Maldonado MD Date: 10/28/17 Location: [facility] [place] Sex: M C Admitted: Test Reason : Blood Pressure : / mmHG Vent. Rate : 092 BPM Atrial Rate : 330 BPM P-R Int : 000 ms QRS Dur : 090 ms QT Int : 312 ms P-R-T Axes : 000 -17 058 degrees QTc Int : 385 ms Atrial flutter with variable A-V block Abnormal ECG Confirmed by DAVID LOVETT, EZ ([id number]), make up editor JOSHUA MARURFO ([id number]) on 10/31/2017 2:26:18 PM Referred By: Damaso Carl Confirmed By:EZ HERNANDEZ MD 10/31/17 1426 Date Ez Hernandez MD CC: Chad Maldonado MD; Damaso Carl MD; JEY JEROME Date Dictated: 10/28/171331 Date Transcribed: 10/28/171331 Sourcing Engineer: Signed EMERGENCY DEPARTMENT Observed: 10/28/2017 Status: F Source: [place] SUMMARY 11:41 PM [facility] REPOSITORY [facility] Medical Records Department [address] [place] [address] Emergency Department Summary 10/28/17 1525 MR#: [id number] Acct: [id number] Name: GRISELDA HANSEN Rep #: [id number] : 1950 67 From: Angie Rivera MD PCP: JEY JEROME Status: DEP ER - ER Visit Summary Date of Service: 10/28/17 Chief Complaint: Heart racing History of Present Illness: The patient is a 67 M who is scheduled for prostate surgery on November 04. Patient came in today for preadmission testing and EKG noted the patient to be in SVT. Patient states that now that someone is pointed out his fast heart rate, he does have the sensation that his heart is racing. He states this occurs periodically. He does not know how long this episode may have lasted. Patient does not have chest pain, shortness of breath, lightheadedness, or near syncope. Patient previously been on aspirin and multivitamins that he stopped on October 13 due to his upcoming surgery. Physical Examination: Vital signs include a blood pressure 131/108, temperature 97.8, heart rate 170, respiratory rate 18, pulse ox 99% on room air. Patient sitting upright in bed no acute distress. He is alert and conversant. Head neck examination is unremarkable. Heart is tachycardic. Lung sounds are clear. Abdomen is soft nontender. Test Results: Portable chest x-ray reveals no acute abnormality. EKG appeared to show SVT with a rate of 171. No acute ischemia. CBC was a white count of 14.3. Chemistry studies reveal BUN 23 and creatinine 1.82. Coags are normal. Troponin is less than 0.02. TSH is unremarkable. Emergency Department Course and Treatment: IV line was established. Patient was given 6 mg of IV adenosine. Patient's heart rate waxed and waned between atrial fibrillation and SVT. 5 mg of IV metoprolol were given and patient converted to an atrial flutter rhythm at approximately 110. Patient maintained in this rhythm for approximately 45 minutes and then kicked back into what appeared to be SVT versus a flutter with a 2-1 block at 161. Before he was given any medications he spontaneously converted to normal sinus rhythm. Patient has maintained in sinus rhythm for over an hour. I spoke with Dr. Hernandez. Patient be started on metoprolol 50 mg twice daily. His creatinine clearance is 41 and he will be started on Xarelto at 15 mg a day. Prescriptions for the patient will be given and he will follow- up with Dr. Hernandez. Treatment Plan: [] Disposition: Discharge Impression: 1. SVT, chemical cardioversion 2. New onset atrial flutter with spontaneous conversion to sinus rhythm. This note was generated with [employer] dictation software. It may contain incorrect words, spelling, and punctuation that were not noted in review of the chart prior to signing ED Disposition - Plan for ED Patient: Chief Complaint: Palpitations Referrals: Jey Jerome [Primary Care Provider] - What to do if you have Problems For any increased pain, shortness of breath, bleeding, nausea or vomiting, chest pain, or any unexpected problems, contact your Primary Care Provider. Call [facility] ([phone]) or report to the closest Emergency Room. Call 911 if necessary. 10/28/17 2341 <Electronically signed by Angie Rivera MD> Date Angie Rivera MD Cosigner Signature (If Indicated): Date CC: JEY JEROME HISTORY AND PHYSICAL Observed: 10/28/2017 Status: F Source: [place] EXAM 7:38 PM [facility] REPOSITORY [facility] Medical Records Department [address] [place] [address] History and Physical 10/28/17 1613 MR#: [id number] Acct: [id number] Name: GRISELDA HANSEN Rep #: [id number] : 1950 67 From: Joyce Ross MD PCP: JEY JEROME Status: DEP ER Y Location: ED Addendum entered and electronically signed by Joyce Ross MD 10/28/17 19:38: Code Visit Office Visits / Consults: [id number] OP Consult L1 Original Note: Problem List (1) Atrial flutter Status: Acute (2) Paroxysmal atrial flutter Status: Acute History of Present Illness Date of Admission: 10/28/17 Chief Complaint: cleared for discharge from ED The patient is a 67 year old M seen and examined in ED for atrial flutter [] Past Medical History Allergies No Known Allergies Allergy (Verified 10/28/17 14:47) Home Medications: Ambulatory Orders Medication Instructions Recorded Aspirin E.C. [Ecotrin] 81 mg PO DAILY@0800 10/28/17 Smoking Status: Never smoker VTE Information - Inpt Only VTE Present on Admission: No VTE Mechan Device Prophylaxis: None VTE Pharm Prophylaxis ordered?: No Reason prophylaxis not ordered:: Treatment Not Indicated - Xarelto at discharge - Physical Exam General: Alert, Oriented x3, Cooperative Neck: No JVD, Negative Carotid Bruits, Thyroid Normal Size and Texture Lungs: Clear to auscultation Cardiovascular: Regular rate, Regular Rhythm - sinus predominant with PACs Abdomen: - - Fernando leg bag Vital Signs Temp Pulse Resp BP Pulse Ox 97.8 F 162 H 16 118/93 H 97 10/28/17 14:47 10/28/17 16:06 10/28/17 16:06 10/28/17 16:06 10/28/17 16:06 Oxygen Flow Rate (L/min) 2 Oxygen Delivery Method Room Air Weight: 210 lb 15.718 oz Body Mass Index (BMI) 30.2 Laboratory Tests Past 24 Hrs WBC 14.3 H RBC 5.38 Assessment/Plan Patient was seen and examined in the emergency department. 67-year-old gentleman who was referred from the urology office/PAT for SVT. The patient was asymptomatic. He reported occasionally feeling fluttering in his chest over the past few years, asymptomatic. Usually occurred after eating large meals. He denied any anginal symptoms. EKGs were reviewed. Initial EKG SVT at 170. He received adenosine 6 mg, and reverted to an atrial flutter, 2-1 at approximately 150s. He then received 5 mg Lopressor IV, and eventually settled into a sinus rhythm. Upon seeing the patient, he remains in sinus rhythm with occasional PACs. Physical exam was unrevealing, volume status euvolemic. He has Fernando with leg bag for urinary retention. He remained in sinus rhythm whilst observed in ED for over an hour, and was cleared for discharge by cardiology, Dr. Hernandez. Prescriptions for NOAC and betablocker were provided by ED in consultation with Dr. Hernandez. Follow up was arranged. 10/28/171936 <Electronically signed by Joyce Ross MD> Date Joyce Ross MD Cosigner Signature: Date (if applicable) CC: Joyce Ross MD; JEY JEROME Signed DISCHARGE INSTRUCTION Observed: 10/28/2017 Status: F Source: [place] 5:34 PM [facility] REPOSITORY [facility] Medical Records Department [address] [place] [address] [place] [address] Discharge Instruction 10/28/171730 MR#: [id number] Acct: [id number] Name: GRISELDA HANSEN Rep #: [id number] : 1950 67 From: Angie Rivera MD PCP: JEY JEROME Status: REG ER ED Disposition - Plan for ED Patient: Disposition: Home or Assisted Living Chief Complaint: Palpitations Instructions: ED Paroxysmal Atrial Flutter Prescriptions: Rivaroxaban [Xarelto] 15 mg PO DAILY #30 tablet Metoprolol Tartrate [Lopressor (Beta Codey)] 50 mg PO BID #60 tablet Referrals: Jey Jerome [Primary Care Provider] - Ez Hernandez MD [STAFF PHYSICIAN] - Additional Instructions: Follow-up with Dr Hernandez as discussed. What to do if you have Problems For any increased pain, shortness of breath, bleeding, nausea or vomiting, chest pain, or any unexpected problems, contact your Primary Care Provider. Call [facility] ([phone]) or report to the closest Emergency Room. Call 911 if necessary. 10/28/171733 <Electronically signed by Angie Rivera MD> Date Angie Rivera MD Cosigner Signature (If Indicated): Date CC: JEY JEROME CHEST 1 VIEW Observed: 10/28/2017 Status: F Source: [place] (PORTABLE) 3:12 PM [facility] HOSPITAL REPOSITORY [facility] Imaging Services [address] [place] [address] Chest 1 View (Portable) MR#: [id number] Acct: [id number] Name: GRISELDA HANSEN Rep #: [id number] : 1950 M 67 From: Irvin Solis MD PCP: JEY JEROME Status: REG ER Study: Chest 1 View (Portable) Date of Exam: 10/28/17 Exam# [id number] Ordering Dr: Angie Rivera MD STUDY: X-RAY CHEST REASON FOR EXAM: Male, 67 years old. Chest pain. TECHNIQUE: Single AP portable view of the chest. COMPARISON: None. FINDINGS: EKG left ribs are seen. The lungs are clear and expanded. There is no demonstrated pleural abnormality. Normal size heart. Normal mediastinum and caitlin. Normal visualized pulmonary arteries. There is atherosclerotic tortuosity of the aortic arch and descending thoracic aorta. There are diffuse degenerative changes of the visualized thoracic spine. Normal visualized ribs, clavicles, and shoulders. There is no demonstrated abnormality of the visualized soft tissue structures of the upper abdomen. RAD/Chest 1 View (Portable) IMPRESSION: No acute abnormality is seen. Electronically Signed: Irvin Solis MD at 15:39 EDT Tel [phone], Service support , CC: Angie Rivera MD; JEY JEROME Sourcing Engineer: Signed CBC W/DIFF, AUTOMATED Collected: 10/28/2017 Status: F Source: [place] 2:55 PM [facility] REPOSITORY TYPE CODE TESTS RESULT OUT OF RANGE REFERENCE UNITS LAB L100.1000 4.4-11.0 K/mm3 High WBC 14.3 LAB L100.1200 4.6-6.2 M/mm3 Normal RBC 5.38 LAB L100.1300 13.0-16.5 g/dl Normal HGB 16.2 LAB L100.1400 40-54 % Normal HCT 47.0 LAB L100.1500 80-94 fL Normal MCV 87.4 LAB L100.1600 27.0-32.0 pg Normal MCH 30.1 LAB L100.1700 32-36 g/gl Normal MCHC 34.5 LAB L100.1810 11.6-14.6 % Normal RDW CV 13.6 LAB L100.1820 35.1-43.9 fl Normal RDW SD 43.5 LAB L100.1900 150-450 K/mm3 Normal PLT 319 LAB L100.2000 6.2-12.0 fl Normal MPV 11.2 LAB L100.2100 47-70 % High NEUT% 71.2 LAB L100.2200 19-41 % Low LY% 17.5 LAB L100.2300 0-10 % Normal MONO% 9.4 LAB L100.2400 0-5 % Normal EO% 1.5 LAB L100.2500 0-1 % Normal BASO% 0.2 LAB L100.2550 0.0-0.9 % Normal IM GRAN % 0.200 Result Comment: IG% - Immature Granulocytes (promyelocytes, myelocytes and metamyelocytes) > 1% indicates that a LEFT SHIFT is Present. LAB L100.2620 2.0-7.7 X10 3/uL High Absolute Neut 10.2 LAB L100.2720 0.83-4.51 X10 3/ul Normal Absolute Lymph 2.50 Performed By: #### L100.0100 #### [facility] [address] [place], [place], [address] PROTHROMBIN TIME W/INR Collected: 10/28/2017 Status: F Source: [place] 2:55 PM [facility] REPOSITORY TYPE CODE TESTS RESULT OUT OF RANGE REFERENCE UNITS LAB L300.4150 11.7-14.9 SECONDS Normal PROTIME 13.8 LAB L300.4200 Normal INR 1.1 Performed By: #### L300.3900, L300.4310 #### [facility] [address] [place], [address] PARTIAL THROMBOPLAST Collected: 10/28/2017 Status: F Source: [place] TIME 2:55 PM [facility] REPOSITORY TYPE CODE TESTS RESULT OUT OF RANGE REFERENCE UNITS LAB L300.4310 24.1-36.2 Seconds Normal PTT 27.4 Performed By: #### L300.3900, L300.4310 #### [facility] [address] [place], [address] BASIC METABOLIC Collected: 10/28/2017 Status: F Source: [place] PROFILE (BMP) 2:55 PM [facility] REPOSITORY Order Comment: 'TROP' Serial specimen #1, #2, #3, or #4: 1 TYPE CODE TESTS RESULT OUT OF RANGE REFERENCE UNITS LAB L501.0100 74-106 mg/dL Normal GLU 101 Result Comment: Fasting Glucose result from 100 to 125 mg/dL suggests IMPAIRED HOMEOSTASIS per A.D.A. criteria. Please note revised GLUCOSE reference range effective 2017. LAB L501.1000 7-18 mg/dL High BUN 23 LAB L501.1100 0.70-1.30 mg/dL High CREAT,SERUM 1.82 Result Comment: The validity of the calculated GFR AND GFRAA in patients over 70 years has not been determined. Clinical correlation is essential. LAB L501.1110 >60 mL/min Low EST GFR 40 Result Comment: Non- GFR Calc LAB L501.1115 >60 mL/min Low EST GFR - AA 48 Result Comment: GFR Calc LAB L501.1255 ml/min Normal Estimated CRCL 41.22 LAB L501.1300 10-20 RATIO Normal BUN/CRE 12.6 LAB L501.2200 8.5-10 mg/dL Normal .1 CA 9.0 LAB L501.5300 136-14 mmol/L Normal 5 NA 142 LAB L501.5600 3.5-5. mmol/L Normal 1 K 4.2 LAB L501.5900 98-107 mmol/L High CL 108 LAB L501.6100 21.0-3 mmol/L Normal 2.0 CO2 24.0 LAB L501.6200 5-15 Normal GAP 10 Performed By: #### L500.2500, L501.4010, L501.9520 #### [facility] [address] [place], [address] TROPONIN-I Collected: 10/28/2017 Status: F Source: [place] 2:55 PM [facility] REPOSITORY Order Comment: 'TROP' Serial specimen #1, #2, #3, or #4: 1 TYPE CODE TESTS RESULT OUT OF RANGE REFERENCE UNITS LAB L501.4010 <0.06 ng/mL Normal < 0.02 TROPONIN-I Result Comment: TROPONIN-I EXPECTED VALUES <0.05 NEGATIVE 0.06 - 0.59 AT RISK OF [place] > OR = 0.60 SUGGEST [place] Performed By: #### L500.2500, L501.4010, L501.9520 #### [facility] [address] [place], [place], [address] THYROID STIM HORMONE Collected: 10/28/2017 Status: F Source: [place] (TSH) 2:55 PM [facility] REPOSITORY Order Comment: 'TROP' Serial specimen #1, #2, #3, or #4: 1 TYPE CODE TESTS RESULT OUT OF RANGE REFERENCE UNITS LAB L501.9520 0.358-3.74 uIU/mL Normal TSH 2.18 Performed By: #### L500.2500, L501.4010, L501.9520 #### [facility] [address] [place], [place], [address] BMP Collected: 10/25/2017 Status: F Source: [facility] 2:30 PM [facility] REPOSITORY TYPE CODE TESTS RESULT OUT OF REFERENCE UNITS RANGE LAB 1547-9 80-115 mg/dL GLUCOSE High 126 LAB NA(LOINC) 136-146 mEq/L Sodium Level 136 LAB K(LOINC) 3.5-5.1 mEq/L Potassium Level 4.5 LAB CL(LOINC) 98-107 mEq/L Chloride 104 LAB CO2(LOINC) 23-31 mEq/L CO2 24 LAB EBAL(LOINC mEq/L ) Electrolyte Balance 8.0 LAB BUN(LOINC) 7.0-18.0 mg/dL BUN 13.2 LAB CRE(LOINC) 0.6-1.2 mg/dL Creatinine Lvl (s) 0.9 LAB BC(LOINC) 7-27 ratio BUN/Creatinine 15 Ratio LAB CA(LOINC) 8.4-10.2 mg/dL Calcium Lvl 8.9 Performed By: #### GFR, TREASURE #### [address] [address] .GFR Collected: 10/25/2017 Status: F Source: [facility] 2:30 PM [facility] REPOSITORY TYPE CODE TESTS RESULT OUT OF REFERENCE UNITS RANGE LAB GFRAA(LOINC ml/min/1.73 ) sqm GFR 102 [place] Result Comment: GFR Population mean for , Non- Americans Ages 20-29 = 116 mL/min/1.73 sq.m. Ages 30-39 = 107 mL/min/1.73 sq.m. Ages 40-49 = 99 mL/min/1.73 sq.m. Ages 50-59 = 93 mL/min/1.73 sq.m. Ages 60-69 = 85 mL/min/1.73 sq.m. Ages 70+ = 75 mL/min/1.73 sq.m. Chronic Kidney Disease: Less than 60 mL/min/1.73 square meters End Stage Renal Disease: Less than 15 mL/min/1.73 square meters LAB GFRNO(LOINC) ml/min/1.73sqm GFR Non- >60 Result Comment: GFR Population mean for , Non- Americans Ages 20-29 = 116 mL/min/1.73 sq.m. Ages 30-39 = 107 mL/min/1.73 sq.m. Ages 40-49 = 99 mL/min/1.73 sq.m. Ages 50-59 = 93 mL/min/1.73 sq.m. Ages 60-69 = 85 mL/min/1.73 sq.m. Ages 70+ = 75 mL/min/1.73 sq.m. Chronic Kidney Disease: Less than 60 mL/min/1.73 square meters End Stage Renal Disease: Less than 15 mL/min/1.73 square meters Performed By: #### GFR, TREASURE #### [address] [address] CBC Collected: 10/19/2017 Status: F Source: [facility] 10:45 AM [facility] REPOSITORY TYPE CODE TESTS RESULT OUT OF REFERENCE UNITS RANGE LAB WBC(LOINC) 4.60-10.80 10 3/mcL WBC 8.80 LAB RBCCT(LOINC 4.04-6.13 10 6/mcL ) RBC 4.90 LAB HGB(LOINC) 14.0-18.0 G/dL Hgb 14.9 LAB HCT(LOINC) 42.0-52.0 % Hct 43.6 LAB MCV(LOINC) 80.0-94.0 fL MCV 89.0 LAB MCH(LOINC) 27.0-31.2 pg MCH 30.3 LAB MCHC(LOINC) 31.8-35.4 G/dL MCHC 34.1 LAB RDW(LOINC) 11.5-14.5 % RDW 14.2 LAB PLT(LOINC) 130-400 10 3/mcL Platelet 295 LAB MPV(LOINC) 7.4-10.4 fL MPV 9.4 Performed By: #### CMP, ANEU, ADIFF, CBC, GFR #### [facility] [address] [place], [place] [address] .AUTO DIFF Collected: 10/19/2017 Status: F Source: [facility] 10:45 AM [facility] REPOSITORY TYPE CODE TESTS RESULT OUT OF REFERENCE UNITS RANGE LAB ANDREW(LOINC) 37.0-80.0 % Neutrophil % 69.0 LAB LYM(LOINC) 10.0-50.0 % Lymphocyte % 19.5 LAB MON(LOINC) 1.7-13.0 % Monocyte % 8.9 LAB EO(LOINC) 0.0-7.0 % Eosinophil % 2.1 LAB BAS(LOINC) 0.0-2.5 % Basophil % 0.5 LAB ABLYM(LOIN 0.77-3.85 10 3/mcL C) Lymphocyte, 1.70 Absolute LAB SITA(LOINC 0.15-1.00 10 3/mcL ) Monocyte, 0.80 Absolute LAB AEOS(LOINC 0.00-0.40 10 3/mcL ) Eosinophil, 0.20 Absolute LAB ABAS(LOINC 0.00-0.19 10 3/mcL ) Basophil, 0.00 Absolute Performed By: #### CMP, ANEU, ADIFF, CBC, GFR #### [place] [address] [place], [place] [address] .NEUABS Collected: 10/19/2017 Status: F Source: [facility] 10:45 AM [facility] REPOSITORY TYPE CODE TESTS RESULT OUT OF REFERENCE UNITS RANGE LAB ANEU(LOINC) 2.85-6.16 10 3/mcL Neutrophil, 6.10 Absolute Performed By: #### CMP, ANEU, ADIFF, CBC, GFR #### [place] [place], [place] [address] CMP Collected: 10/19/2017 Status: F Source: [facility] 10:45 AM [facility] REPOSITORY TYPE CODE TESTS RESULT OUT OF REFERENCE UNITS RANGE LAB 1547-9 80-115 mg/dL GLUCOSE 99 LAB NA(LOINC) 136-146 mEq/L Sodium Level 137 LAB K(LOINC) 3.5-5.1 mEq/L Potassium High Level 5.6 LAB CL(LOINC) 98-107 mEq/L Chloride 102 LAB CO2(LOINC) 23-31 mEq/L CO2 29 LAB EBAL(LOINC mEq/L ) Electrolyte Balance 6.0 LAB BUN(LOINC) 7.0-18.0 mg/dL BUN 14.4 LAB CRE(LOINC) 0.6-1.2 mg/dL Creatinine Lvl (s) 1.0 LAB BC(LOINC) 7-27 ratio BUN/Creatinine 14 Ratio LAB CA(LOINC) 8.4-10.2 mg/dL Calcium Lvl 9.6 LAB PROT(LOINC 6.0-8.3 G/dL ) Total Protein 6.6 LAB ALB(LOINC) 3.4-4.8 G/dL Albumin Level 4.2 LAB GLB(LOINC) G/dL Globulin 2.4 LAB AG(LOINC) 1.1-2.5 ratio A/G Ratio 1.8 LAB BILT(LOINC 0.2-1.0 mg/dL ) Bili Total 0.6 LAB AP(LOINC) 40-135 IU/L Alk Phos 68 LAB AST(LOINC) 10-40 IU/L AST/SGOT 15 LAB ALT(LOINC) 10-35 IU/L ALT/SGPT 20 Performed By: #### CMP, ANEU, ADIFF, CBC, GFR #### [address] [place], [place] [address] .GFR Collected: 10/19/2017 Status: F Source: [facility] 10:45 AM [facility] REPOSITORY TYPE CODE TESTS RESULT OUT OF REFERENCE UNITS RANGE LAB GFRAA(LOINC ml/min/1.73 ) sqm GFR 94 [place] Result Comment: GFR Population mean for , Non- Americans Ages 20-29 = 116 mL/min/1.73 sq.m. Ages 30-39 = 107 mL/min/1.73 sq.m. Ages 40-49 = 99 mL/min/1.73 sq.m. Ages 50-59 = 93 mL/min/1.73 sq.m. Ages 60-69 = 85 mL/min/1.73 sq.m. Ages 70+ = 75 mL/min/1.73 sq.m. Chronic Kidney Disease: Less than 60 mL/min/1.73 square meters End Stage Renal Disease: Less than 15 mL/min/1.73 square meters LAB GFRNO(LOINC) ml/min/1.73sqm GFR Non- >60 Result Comment: GFR Population mean for , Non- Americans Ages 20-29 = 116 mL/min/1.73 sq.m. Ages 30-39 = 107 mL/min/1.73 sq.m. Ages 40-49 = 99 mL/min/1.73 sq.m. Ages 50-59 = 93 mL/min/1.73 sq.m. Ages 60-69 = 85 mL/min/1.73 sq.m. Ages 70+ = 75 mL/min/1.73 sq.m. Chronic Kidney Disease: Less than 60 mL/min/1.73 square meters End Stage Renal Disease: Less than 15 mL/min/1.73 square meters Performed By: #### CMP, ANEU, ADIFF, CBC, GFR #### [address] [place], [place] [address] ALLERGIES ALLERGIES DATE TYPE / CODE NAME / CODE REACTION SEVERITY SOURCE 06/23/2018 Drug No Known Unknown [facility] Allergy/4160 Allergies/F00 Hospital 78354(SNOMED 4909174(RXNOR Repository CT) M) ENCOUNTERS ENCOUNTERS ADMIT/DISCHARGE ACCOUNT NUMBER ADMITTING ENCOUNTER LOCATION SOURCE CLASS 06/23/[id number] [facility] ding:LAB Repository 06/23/2018/06/23/20 [id number] Ambulatory BMSBuilding: [place] [address] Repository 06/12/2018 [id number] Ambulatory BMSBuilding: [facility] Repository 06/12/[id number] [facility] ding:PSN Repository 05/10/2018/05/14/20 [id number] Ambulatory BBuilding:DR [place] 18 [facility] Repository 03/17/2018/03/17/20 [id number] Ambulatory BMSBuilding: [place] [address] Repository 01/16/2018 [id number] Ambulatory BMSBuilding: [facility] Repository 01/16/[id number] [facility] ding:PSN Repository 01/06/[id number] [facility] ding:LAB Repository 12/14/2017/12/15/19 [id number] Ambulatory BMSBuilding: [place] [address] Repository 12/13/2017 [id number] Ambulatory BMSBuilding: [place] [facility] Repository 12/01/[id number] [facility] ding:LABSPEC Repository 11/16/2017/11/18/19 [id number] Ambulatory [address] ding:SDCRoom Repository : MS211 11/14/2017 [id number] Ambulatory BMSBuilding: [facility] Repository 11/14/[id number] [facility] ding:CVS Repository 11/02/2017/11/03/19 [id number] Ambulatory BMSBuilding: [place] [address] Repository 10/28/2017/10/29/19 [id number] Emergency [address] ding:ED Repository 10/28/2017 [id number] Ambulatory BMSBuilding: [place] BMS.Counts include 234 beds at the [facility] Repository 10/28/2017 [id number] Ambulatory BMSBuilding: [place] [facility] Repository 10/25/2017/10/30/19 [id number] Ambulatory [address] ding:[facility] Repository 10/19/2017/10/24/19 [id number] Ambulatory [address] ding:DROP [facility] Repository 10/07/2017/10/08/19 [id number] Emergency BBuilding:ER [address] Repository PAYERS PAYERS ENCOUNTER GUARANTOR PAYER SUBSCRIBER SOURCE 06/23/2018 GRISELDA Jamison Primary GRISELDA [id number] Insurance:HEALTH PLAN [facility] Number: Repository [address]Ncl: 330 [id number] [phone] () Date: [place], [place] [address]TB: 06/23/2018 Secondary NOT GIVENUNK Jagdish Insurance:SELF PAY [facility] Number: Effective Repository Date:2018-06-23 06/23/2018 GRISELDA Jamison Primary GRISELDA [place] [id number] Insurance:HEALTH PLAN SMITHDOB: [address] Number: Repository [id number]: 330 [id number] [phone] () Date: [place], [place] [address]PA: 06/23/2018 Secondary NOT GIVENUNK Jagdish Insurance:SELF PAY [facility] Number: Effective Repository Date:2018-03-17 06/12/2018 GRISELDA Jamison Primary GRISELDA [id number] Insurance:HEALTH PLAN SMITHDOB: [address] Number: Repository [address]Wxn: 330 [id number] [phone] () Date: [place], [place] [address]JA: 06/12/2018 Secondary NOT GIVENUNK Jagdish Insurance:SELF PAY [facility] Number: Effective Repository Date:2018-06-12 06/12/2018 GRISELDA Jamison Primary GRISELDA [place] [id number] Insurance:HEALTH PLAN SMITHDOB: [facility] [id number] Medical Center Number: Repository [id number]: 330) [id number] [phone] () Date: [place], [place] [address]BX: 06/12/2018 Secondary NOT GIVENUNK [place] Insurance:SELF PAY [facility] Number: Effective Repository Date:2018-03-17 05/10/2018 GRISELDA Jamison Primary GRISELDA Jamison Pending [facility] to [facility]: [facility] SMITHDOB: [facility] [id number] THP MEDICAREPolic [id number] Repository [address] Number: [address] [place], [place] [id number] [place], [place] [address]Ail: (330) Date:2018-05-10 [address]Hnm: (HP) [id number] [phone] Name:[address] ()Tel: [phone]) [place] [phone] () [address]IO: 03/17/2018 GRISELDA Jamison Primary GRISELDA Dub[place] [id number] Insurance:HEALTH PLAN SMITHDOB[facility] [id number] Medical Center Number: Repository [address]Qpn: 330 [id number] [phone] () Date: [place], [place] [address]BT: 03/17/2018 Secondary NOT GIVENUNK [place] Insurance:SELF PAY [facility] Number: Effective Repository Date:2018-03-17 01/16/2018 GRISELDA Jamison Primary GRISELDA Jamison Jagdish [id number] Insurance:HEALTH PLAN SMITHDOB: Community [facility] [address] Number: Repository [address]Hwu: 330 [id number] [phone] () Date: [place], [place] [address]KH: 01/16/2018 Secondary NOT GIVENUNK [place] Insurance:SELF PAY [facility] Number: Effective Repository Date:2018-01-16 01/16/2018 GRISELDA Jamison Primary GRISELDA Jamison Jagdish [id number] Insurance:HEALTH PLAN SMITHDOB[facility] [address] Number: Repository [address]Hck: 330 [id number] [phone] () Date: [place], [place] [address]VY: 01/16/2018 Secondary NOT GIVENUNK [place] Insurance:SELF PAY [facility] Number: Effective Repository Date:2018-01-12 01/06/2018 GRISELDA Jamison Primary GRISELDA Jamison Jagdish [id number] Insurance:HEALTH PLAN SMITHDOB: [facility] OF [address] Number: Repository [id number]: 330 [id number] [phone] () Date: [place], [place] [address]CQ: 01/06/2018 Secondary NOT GIVENUNK Jag[place]ish Insurance:SELF PAY [facility] Number: Effective Repository Date:2018-01-06 12/14/2017 GRISELDA M Primary GRISELDA Jamison Jagdish [id number] Insurance:HEALTH PLAN SMITHDOB: Community [facility] OF [address] Number: Repository [address]Qmy: 330 [id number] [phone] (HP) Date: [place], [place] [address]FY: 12/14/2017 Secondary NOT GIVENUNK Jag[place]ish Insurance:SELF PAY [facility]: Effective Repository Date:2017-12-14 12/13/2017 GRISELDA M Primary GRISELDA Jamison Jagdish [id number] Insurance:HEALTH PLAN SMITHDOB: Community [address] [place] [id number] Medical Center Number: Repository [address]Wbb: 330 [id number] [phone] (HP) Date: [place], [place] [address]VU: 12/13/2017 Secondary NOT GIVENUNK [place] Insurance:SELF PAY [facility] Number: Effective Repository Date:2017-12-13 12/01/2017 GRISELDA M Primary GRISELDA Jamison Jagdish [id number] Insurance:HEALTH PLAN SMITHDOB: Community [address] [place] [id number] Medical Center Number: Repository [address]Bom: 330 [id number] [phone] () Date: [place], [place] [address]EH: 12/01/2017 Secondary NOT GIVENUNK [place] Insurance:SELF PAY [facility] Number: Effective Repository Date:2017-12-01 11/16/2017 GRISELDA M Primary GRISELDA Jamison Jagdish [id number] Insurance:HEALTH PLAN SMITHDOB: Community [address] [place] [id number] Number: Repository [address]Nrt: 330 [id number] [phone] () Date: [place], [place] [address]HZ: 11/16/2017 Secondary NOT GIVENUNK [place] Insurance:SELF PAY [facility] Number: Effective Repository Date:2017-10-12 11/14/2017 GRISELDA M Primary GRISELDA Jamison Jagdish [id number] Insurance[place] SMITHDOB: Community [facility] [id number] Hospital [place] MEDICAREPolicy Repository [address]Bcr: (330) Number: Effective [phone] (HP) Date: [place], [place] [address]HG: 11/14/2017 Secondary NOT GIVENUNK [place] Insurance:SELF PAY [facility] Number: Effective Repository Date:2017-11-14 11/14/2017 GRISELDA M Primary GRISELDA Jamison Jagdish [id number] Insurance:HEALTH PLAN SMITHDOB: Community [address] OF [facility] [id number] Medical Center Number: Repository [address]Vaq: (330) [id number] [phone] (HP) Date: [place], [place] [address]HR: 11/14/2017 Secondary NOT GIVENUNK Jagdish Insurance:SELF PAY [facility] Number: Effective Repository Date:2017-11-03 11/02/2017 GRISELDA M Primary GRISELDA Jamison Jagdish [id number] Insurance:HEALTH PLAN SMITHDOB: Community [address] [facility] [id number] Medical Center Number: Repository [address]Dux: (330) [id number] [phone] () Date: [place], [place] [address]NO: 11/02/2017 Secondary NOT GIVENUNK [place] Insurance:SELF PAY [facility] Number: Effective Repository Date:2017-11-01 10/28/2017 GRISELDA M Primary GRISELDA Jamison Jagdish [id number] Insurance:HEALTH PLAN SMITHDOB: Community [address] [place] 246932-03-12[facility] Number: Repository [address]Vif: (330) [id number] [phone] () Date: [place], [place] [address]VY: 10/28/2017 Secondary NOT GIVENUNK Jag[place] Insurance:SELF PAY [facility] Number: Effective Repository Date:2017-10-28 10/28/2017 GRISELDA M Primary GRISELDA Dubon [id number] Insurance:HEALTH PLAN STAMFORDDOB: [facility] [id number] Medical Center Number: Repository [address]Kxp: 330 [id number] [phone] () Date: [place] [address]GT: 10/28/2017 Secondary NOT GIVENUNK [place] Insurance:SELF PAY [facility] Number: Effective Repository Date:2017-10-28 10/28/2017 GRISELDA M Primary GRISELDA Dubon [id number] Insurance:[facility]: [facility] [id number] Hospital [place] MEDICAREPolicy Repository [address]Ssb: (330) Number: Effective [phone] () Date: [facility] [place] [address]TO: 10/28/2017 Secondary NOT GIVENUNK [place] Insurance:SELF PAY [facility] Number: Effective Repository Date:2017-10-28 10/25/2017 GRISELDA Jamison Primary [facility]THE [facility] Health[facility]: [facility] [id number] Number: [id number] Repository [place] [address] [id number] [address] [place] [address] Date:2017-10-25 [place], [place] [address]Knd: [phone] [id number] [id number]: () Name:[id number] [place] [phone] KENN ROSARIO ()Tel: [phone]: () [phone] 10/19/2017 GRISELDA M Primary Insurance:THE [facility]: [facility]: [facility] Number: [id number] Repository [facility] [id number] [address] [facility], [place] Date:2017-10-19 - [facility], [place] [address]Ezy: [phone] [id number] [address]Amk: (HP) Name:Pat [place] [id number] KENN ROSARIO (HP)Tel: [phone]: (wp) [phone] 10/07/2017 GRISELDA Jamison Primary Insurance:THE [facility]: [facility]: [facility] Number: [id number] Repository [place] [address] [id number] [facility], [place] Date:2017-10-07 - [facility], [place] [address]Rlm: [phone] [address]Hac: (HP) Name:C11Ruben [facility] [phone] KENN ROSARIO (HP)Tel: [phone]: (wp) [phone]
== END ==
PROVIDERS: Family Provider Family Medicine; PCP Family Medicine; Referring Provider Urology; Visit Provider Urology
DX: C61 Malignant neoplasm of prostate (principal)
CPT/HCPCS: 36415; 84153

== ENCOUNTER → 2019-07-05 13:01 | Outpatient (CLI) | payer OTHER, SELFPAY ==
[2018-12-28 13:29] VITALS: BMI 30.1
[2019-07-05 15:37] LABS: PSA,Total - Annual Screen 2.82 ng/mL (0.00-4.00)
== END ==
PROVIDERS: Family Provider Family Medicine; PCP Family Medicine; Referring Provider Urology; Visit Provider Urology
DX: Z12.5 Encounter for screening for malignant neoplasm of prostate (principal)
CPT/HCPCS: 36415; 84153; G0103